=== PATIENT | male | born 1945 | race Caucasian/White ===

== ENCOUNTER → 2016-08-08 | Outpatient (CLI) | payer MEDICARE ==
[~2016-08-08] MED LIST: AMPI50CA PO; ASPI81TA85 PO; COLA100C PO; COUM1TAB14 PO; DIGO0.12 PO; DIOV160T2 PO; DOXA1TAB42 PO; LASI20TA PO; LEVO125T41 PO; MULTTAB6 PO; OMEG12002 PO; SIMV20TA2 PO; SPIR25TA2 PO; TOPR100T PO; VITA500046 PO; [UNRECOGNIZED DRUG - CODE] PO; [UNRECOGNIZED DRUG - OTHER]
[2016-08-08 12:06] LABS: MEAN CORPUSCULAR HEMOGLOBIN 30.9 pg (27.0-33.0); MEAN CORPUSCULAR HGB CONC 34.2 g/dl (32.0-36.5); MEAN CORPUSCULAR VOLUME 90.2 fl (80.0-96.0); WHITE BLOOD COUNT 7.1 K/mm3 (4.0-10.0)
[2016-08-08 12:29] LABS: ALBUMIN 3.9 GM/DL (3.2-5.2); ALBUMIN/GLOBULIN RATIO 1.05 (1.00-1.93); BILIRUBIN,TOTAL 0.4 MG/DL (0.2-1.0); CALCIUM LEVEL 9.2 MG/DL (8.8-10.2); CREATININE FOR GFR 1.64 MG/DL (0.70-1.30); GLOMERULAR FILTRATION RATE 44.4 (>42); MAGNESIUM LEVEL 2.4 MG/DL (1.8-2.4); POTASSIUM SERUM 5.1 MEQ/L (3.5-5.1); TOTAL PROTEIN 7.6 GM/DL (6.4-8.2)
== END ==
LOC: M SMT 08:56
PROVIDERS: ATTEND Internal Medicine
DX: E78.00 Pure hypercholesterolemia, unspecified (principal); E03.9 Hypothyroidism, unspecified; I12.9 Hypertensive chronic kidney disease with stage 1 through stage 4 chronic kidney disease, or unspecified chronic kidney disease; D63.1 Anemia in chronic kidney disease; N18.9 Chronic kidney disease, unspecified

== ENCOUNTER → 2016-11-28 | Outpatient (CLI) | payer MEDICARE ==
[~2016-11-28] MED LIST changes: -COLA100C PO; +COLA100C3 PO
--- NOTE | 2016-11-28 17:31 | REP ---
LEFT FOOT, FOUR VIEWS: HISTORY: Injury. There is no acute fracture or dislocation. There is narrowing of the 1st metatarsal phalangeal joint space and intermediate and distal interphalangeal joint spaces. IMPRESSION: There is no acute fracture or dislocation. Signed by Molina Ward MD 11/28/2016 05:41 P
--- NOTE | 2016-11-28 19:28 | REP ---
LEFT ANKLE, FOUR VIEWS: HISTORY: Injury. There is no fracture or dislocation. The joint space is normal in appearance. IMPRESSION: There is no acute fracture or dislocation. Signed by Molina Ward MD 11/28/2016 07:30 P
== END ==
LOC: M WUC 16:56
PROVIDERS: ATTEND Internal Medicine
DX: S99.922A Unspecified injury of left foot, initial encounter (principal); X58.XXXA Exposure to other specified factors, initial encounter; Y93.9 Activity, unspecified; Y92.9 Unspecified place or not applicable; Y99.8 Other external cause status

== ENCOUNTER → 2016-12-27 | Outpatient (CLI) | payer MEDICARE ==
[2016-12-27 13:49] LABS: ALBUMIN 3.5 GM/DL (3.2-5.2); ALBUMIN/GLOBULIN RATIO 1.06 (1.00-1.93); BILIRUBIN,TOTAL 0.5 MG/DL (0.2-1.0); CALCIUM LEVEL 8.4 MG/DL (8.8-10.2); CREATININE FOR GFR 1.81 MG/DL (0.70-1.30); GLOMERULAR FILTRATION RATE 39.7 (>42); POTASSIUM SERUM 4.7 MEQ/L (3.5-5.1); TOTAL PROTEIN 6.8 GM/DL (6.4-8.2); URIC ACID 7.8 MG/DL (3.5-7.2)
[2016-12-27 14:29] LABS: MEAN CORPUSCULAR HEMOGLOBIN 31.6 pg (27.0-33.0); MEAN CORPUSCULAR HGB CONC 33.5 g/dl (32.0-36.5); MEAN CORPUSCULAR VOLUME 94.5 fl (80.0-96.0); RED CELL DISTRIBUTION WIDTH 12.6 % (11.5-14.5); WHITE BLOOD COUNT 6.7 K/mm3 (4.0-10.0)
== END ==
LOC: M WUC 09:18
PROVIDERS: ATTEND Internal Medicine
DX: D64.9 Anemia, unspecified (principal); I10 Essential (primary) hypertension; M10.9 Gout, unspecified

== ENCOUNTER → 2017-01-31 | Outpatient (CLI) | payer MEDICARE ==
[~2017-01-31] MED LIST changes: +AMPI500C9 PO; -AMPI50CA PO; -COLA100C3 PO; +COLA100C5 PO
[2017-01-31 13:30] LABS: BASO % 0.3 % (0.0-1.0); EOS # 0.4 K/mm3 (0.0-0.50); LARGE UNSTAINED CELL # 0.1 K/mm3 (0.0-0.4); LARGE UNSTAINED CELL % 1.5 % (0.0-4.0); MEAN CORPUSCULAR HEMOGLOBIN 32.5 pg (27.0-33.0); MEAN CORPUSCULAR HGB CONC 34.5 g/dl (32.0-36.5); MEAN CORPUSCULAR VOLUME 94.2 fl (80.0-96.0); MONO # 0.5 K/mm3 (0.0-0.8); MONO % 7.1 % (0.0-5.0); NEUTROPHILS # 4.5 K/mm3 (1.8-7.7); NEUTROPHILS % 69.1 % (36.0-66.0); PLATELET COUNT, AUTOMATED 112 k/mm3 (150-450); RED CELL DISTRIBUTION WIDTH 12.9 % (11.5-14.5); WHITE BLOOD COUNT 6.5 K/mm3 (4.0-10.0)
== END ==
LOC: M WUC 09:07
PROVIDERS: ATTEND Internal Medicine
DX: D64.9 Anemia, unspecified (principal)

== ENCOUNTER → 2017-06-24 | Outpatient (CLI) | payer MEDICARE ==
[2017-06-24 15:34] LABS: MEAN CORPUSCULAR HGB CONC 33.2 g/dl (32.0-36.5); MEAN CORPUSCULAR VOLUME 96.4 fl (80.0-96.0); PLATELET COUNT, AUTOMATED 123 10^3/uL (150-450); RED CELL DISTRIBUTION WIDTH 13.8 % (11.5-14.5); WHITE BLOOD COUNT 8.4 10^3/uL (4.0-10.0)
[2017-06-24 15:36] LABS: ALBUMIN 3.7 GM/DL (3.2-5.2); ALBUMIN/GLOBULIN RATIO 1.09 (1.00-1.93); BILIRUBIN,TOTAL 0.7 MG/DL (0.2-1.0); CALCIUM LEVEL 8.9 MG/DL (8.8-10.2); CREATININE FOR GFR 1.64 MG/DL (0.70-1.30); GLOMERULAR FILTRATION RATE 44.3 (>42); MAGNESIUM LEVEL 2.1 MG/DL (1.8-2.4); POTASSIUM SERUM 4.5 MEQ/L (3.5-5.1); TOTAL PROTEIN 7.1 GM/DL (6.4-8.2); URIC ACID 3.7 MG/DL (3.5-7.2)
== END ==
LOC: M SMT 09:33
PROVIDERS: ATTEND Internal Medicine
DX: I12.9 Hypertensive chronic kidney disease with stage 1 through stage 4 chronic kidney disease, or unspecified chronic kidney disease (principal); E78.00 Pure hypercholesterolemia, unspecified; E03.9 Hypothyroidism, unspecified; M10.9 Gout, unspecified; D63.1 Anemia in chronic kidney disease; N18.9 Chronic kidney disease, unspecified

== ENCOUNTER → 2018-04-04 | Outpatient (CLI) | payer MEDICARE ==
[2018-04-04 13:18] LABS: HEMATOCRIT 30.1 % (42.0-52.0); HEMOGLOBIN 9.9 g/dl (13.5-17.5); MEAN CORPUSCULAR HEMOGLOBIN 32.1 pg (27.0-33.0); MEAN CORPUSCULAR HGB CONC 32.9 g/dl (32.0-36.5); MEAN CORPUSCULAR VOLUME 97.7 fl (80.0-96.0); PLATELET COUNT, AUTOMATED 127 10^3/uL (150-450); RED BLOOD COUNT 3.08 10^6/uL (4.30-6.10); RED CELL DISTRIBUTION WIDTH 13.4 % (11.5-14.5); WHITE BLOOD COUNT 8.6 10^3/uL (4.0-10.0)
[2018-04-04 14:06] LABS: PTH INTACT 23.3 PG/ML (18.5-88.0)
[2018-04-04 14:17] LABS: ALBUMIN 3.7 GM/DL (3.2-5.2); ALBUMIN/GLOBULIN RATIO 1.16 (1.00-1.93); ALKALINE PHOSPHATASE 73 U/L (45-117); ALT/SGPT 21 U/L (12-78); ANION GAP 9 MEQ/L (8-16); AST/SGOT 18 U/L (7-37); BILIRUBIN,TOTAL 0.9 MG/DL (0.2-1.0); BLOOD UREA NITROGEN 24 MG/DL (7-18); CALCIUM LEVEL 9.1 MG/DL (8.8-10.2); CARBON DIOXIDE LEVEL 27 MEQ/L (21-32); CHLORIDE LEVEL 107 MEQ/L (98-107); CHOLESTEROL LEVEL 74 MG/DL (<200); CHOLESTEROL RISK RATIO 2.387 (<5); CREATININE FOR GFR 1.65 MG/DL (0.70-1.30); GLUCOSE, FASTING 107 MG/DL (70-100); HDL CHOLESTEROL 31 MG/DL (>40); LDL CHOLESTEROL 29.8 MG/DL (<100); NON-HDL-C 43 MG/DL; POTASSIUM SERUM 4.3 MEQ/L (3.5-5.1); SODIUM LEVEL 143 MEQ/L (136-145); TOTAL PROTEIN 6.9 GM/DL (6.4-8.2); TRIGLYCERIDES LEVEL 66 MG/DL (<150)
== END ==
LOC: M SMT 08:08
DX: I12.9 Hypertensive chronic kidney disease with stage 1 through stage 4 chronic kidney disease, or unspecified chronic kidney disease (principal); E78.00 Pure hypercholesterolemia, unspecified; N18.3 Chronic kidney disease, stage 3 (moderate); D63.1 Anemia in chronic kidney disease; E03.9 Hypothyroidism, unspecified
CPT/HCPCS: 83735

== ENCOUNTER → 2018-08-15 | Outpatient (CLI) | payer MEDICARE ==
[~2018-08-15] MED LIST changes: -LASI20TA PO; +LASI20TA3 PO; +SPIR-10 PO; -SPIR25TA2 PO; -TOPR100T PO; +TOPR100T13 PO
[2018-08-15 12:22] LABS: HEMATOCRIT 30.9 % (42.0-52.0); MEAN CORPUSCULAR HEMOGLOBIN 30.8 pg (27.0-33.0); MEAN CORPUSCULAR HGB CONC 32.4 g/dl (32.0-36.5); MEAN CORPUSCULAR VOLUME 95.1 fl (80.0-96.0); PLATELET COUNT, AUTOMATED 145 10^3/uL (150-450); RED BLOOD COUNT 3.25 10^6/uL (4.30-6.10)
[2018-08-15 12:28] LABS: ALBUMIN 3.6 GM/DL (3.2-5.2); BILIRUBIN,TOTAL 0.7 MG/DL (0.2-1.0); CREATININE FOR GFR 1.62 MG/DL (0.70-1.30); GLOMERULAR FILTRATION RATE 44.8 (>42); MAGNESIUM LEVEL 2.2 MG/DL (1.8-2.4); POTASSIUM SERUM 4.9 MEQ/L (3.5-5.1); PTH INTACT 22.9 PG/ML (18.5-88.0); TOTAL PROTEIN 6.7 GM/DL (6.4-8.2)
== END ==
LOC: M SMT 09:20
PROVIDERS: ATTEND Internal Medicine
DX: N18.3 Chronic kidney disease, stage 3 (moderate) (principal); D63.1 Anemia in chronic kidney disease; I12.9 Hypertensive chronic kidney disease with stage 1 through stage 4 chronic kidney disease, or unspecified chronic kidney disease

== ENCOUNTER → 2018-10-27 | Outpatient (CLI) | payer MEDICARE ==
[~2018-10-27] MED LIST changes: -DIOV160T2 PO; +DIOV160T3 PO; +TOPR100T PO; -TOPR100T13 PO
[2018-10-27 18:03] LABS: HEMATOCRIT 33.6 % (42.0-52.0); HEMOGLOBIN 10.9 g/dl (13.5-17.5); MEAN CORPUSCULAR HEMOGLOBIN 30.6 pg (27.0-33.0); MEAN CORPUSCULAR HGB CONC 32.4 g/dl (32.0-36.5); MEAN CORPUSCULAR VOLUME 94.4 fl (80.0-96.0); PLATELET COUNT, AUTOMATED 147 10^3/uL (150-450); RED BLOOD COUNT 3.56 10^6/uL (4.30-6.10); WHITE BLOOD COUNT 7.8 10^3/uL (4.0-10.0)
[2018-10-27 18:12] LABS: ALBUMIN 3.7 GM/DL (3.2-5.2); CALCIUM LEVEL 8.5 MG/DL (8.8-10.2); CREATININE FOR GFR 1.52 MG/DL (0.70-1.30); GLOMERULAR FILTRATION RATE 48.2 (>42); MAGNESIUM LEVEL 2.2 MG/DL (1.8-2.4); PHOSPHORUS LEVEL 2.4 MG/DL (2.5-4.9); POTASSIUM SERUM 4.3 MEQ/L (3.5-5.1); PTH INTACT 25.2 PG/ML (18.5-88.0); THYROID STIMULATING HORMONE 1.69 uIU/ML (0.358-3.740); TOTAL PROTEIN 6.8 GM/DL (6.4-8.2); URIC ACID 8.8 MG/DL (3.5-7.2)
== END ==
LOC: M SMT 11:36
PROVIDERS: ATTEND Internal Medicine
DX: N18.3 Chronic kidney disease, stage 3 (moderate) (principal); D63.1 Anemia in chronic kidney disease; E03.9 Hypothyroidism, unspecified; M10.9 Gout, unspecified

== ENCOUNTER → 2019-03-04 | Outpatient (CLI) | payer MEDICARE ==
[~2019-03-04] MED LIST changes: +AMOX500C PO; +CARD1TAB4 PO; +COUM6TAB PO; +DIGO0.123 PO; +ENTR1TAB7 PO; +FOLI1TAB11 PO; +KP F1200 PO; +LASI40TA9 PO; +MULTCAP PO; -SIMV20TA2 PO; +SIMV20TA22 PO
[2019-03-04 10:24] LABS: HEMATOCRIT 33.1 % (42.0-52.0); HEMOGLOBIN 10.8 g/dl (13.5-17.5); MEAN CORPUSCULAR HEMOGLOBIN 30.5 pg (27.0-33.0); MEAN CORPUSCULAR HGB CONC 32.6 g/dl (32.0-36.5); MEAN CORPUSCULAR VOLUME 93.5 fl (80.0-96.0); PLATELET COUNT, AUTOMATED 106 10^3/uL (150-450); RED BLOOD COUNT 3.54 10^6/uL (4.30-6.10); WHITE BLOOD COUNT 5.8 10^3/uL (4.0-10.0)
[2019-03-04 10:49] LABS: ALBUMIN 3.6 GM/DL (3.2-5.2); BILIRUBIN,TOTAL 1.3 MG/DL (0.2-1.0); CALCIUM LEVEL 9.3 MG/DL (8.8-10.2); CHOLESTEROL RISK RATIO 1.886 (<5); CREATININE FOR GFR 1.47 MG/DL (0.70-1.30); GLOMERULAR FILTRATION RATE 50.1 (>42); MAGNESIUM LEVEL 2.3 MG/DL (1.8-2.4); PHOSPHORUS LEVEL 2.7 MG/DL (2.5-4.9); POTASSIUM SERUM 4.8 MEQ/L (3.5-5.1); TOTAL PROTEIN 6.9 GM/DL (6.4-8.2); URIC ACID 9.1 MG/DL (3.5-7.2)
[2019-03-04 11:02] LABS: PTH INTACT 37.6 PG/ML (18.5-88.0)
== END ==
LOC: M SMT 08:43
PROVIDERS: ATTEND Internal Medicine
DX: I12.9 Hypertensive chronic kidney disease with stage 1 through stage 4 chronic kidney disease, or unspecified chronic kidney disease (principal); E78.00 Pure hypercholesterolemia, unspecified; N18.3 Chronic kidney disease, stage 3 (moderate); M10.9 Gout, unspecified; D63.1 Anemia in chronic kidney disease

== ENCOUNTER → 2019-05-21 | Outpatient (CLI) | payer MEDICARE ==
[~2019-05-21] MED LIST changes: -DIGO0.123 PO; +SIMV20TA2 PO; -SIMV20TA22 PO
[2019-05-21 13:05] LABS: BASO # 0.1 10^3/uL (0.0-0.2); EOS # 0.3 10^3/uL (0.0-0.5); EOS % 4.9 % (0.0-3.0); HEMATOCRIT 32.5 % (42.0-52.0); HEMOGLOBIN 10.4 g/dl (13.5-17.5); LYMPH % 14.3 % (24.0-44.0); MEAN CORPUSCULAR HEMOGLOBIN 30.2 pg (27.0-33.0); MEAN CORPUSCULAR VOLUME 94.5 fl (80.0-96.0); MONO # 0.7 10^3/uL (0.0-0.8); MONO % 9.6 % (0.0-5.0); NEUTROPHILS # 4.9 10^3/uL (1.5-8.5); NEUTROPHILS % 69.9 % (36.0-66.0); PLATELET COUNT, AUTOMATED 174 10^3/uL (150-450); RED BLOOD COUNT 3.44 10^6/uL (4.30-6.10)
[2019-05-21 13:45] LABS: ERYTHROCYTE SEDIMENTATION RATE 65 mm/hr (0-20)
== END ==
LOC: M SMT 08:52
PROVIDERS: ATTEND Internal Medicine Infectious Disease
DX: R78.81 Bacteremia (principal)

== ENCOUNTER → 2019-05-21 | Outpatient (CLI) | payer MEDICARE ==
[2019-05-21 13:09] LABS: BASO # 0.1 10^3/uL (0.0-0.2); EOS # 0.3 10^3/uL (0.0-0.5); EOS % 4.9 % (0.0-3.0); HEMATOCRIT 32.4 % (42.0-52.0); HEMOGLOBIN 10.4 g/dl (13.5-17.5); LYMPH % 14.4 % (24.0-44.0); MEAN CORPUSCULAR HEMOGLOBIN 30.4 pg (27.0-33.0); MEAN CORPUSCULAR HGB CONC 32.1 g/dl (32.0-36.5); MEAN CORPUSCULAR VOLUME 94.7 fl (80.0-96.0); MONO # 0.7 10^3/uL (0.0-0.8); MONO % 10.6 % (0.0-5.0); NEUTROPHILS # 4.7 10^3/uL (1.5-8.5); NEUTROPHILS % 68.8 % (36.0-66.0); PLATELET COUNT, AUTOMATED 177 10^3/uL (150-450); RED BLOOD COUNT 3.42 10^6/uL (4.30-6.10); WHITE BLOOD COUNT 6.9 10^3/uL (4.0-10.0)
[2019-05-21 14:11] LABS: CALCIUM LEVEL 9.5 MG/DL (8.8-10.2); CREATININE FOR GFR 1.34 MG/DL (0.70-1.30); GLOMERULAR FILTRATION RATE 55.6 (>42); POTASSIUM SERUM 4.9 MEQ/L (3.5-5.1)
== END ==
LOC: M SMT 08:55
PROVIDERS: ATTEND Internal Medicine Cardiovascular Disease
DX: I42.0 Dilated cardiomyopathy (principal)
CPT/HCPCS: 36415; 80048; 83880; 85025; 85652; 86140; G0463

== ENCOUNTER → 2019-05-25 | Outpatient (REF) | payer MEDICARE ==
[2019-05-25 13:31] LABS: BASO % 0.6 % (0.0-1.0); EOS # 0.4 10^3/uL (0.0-0.5); EOS % 5.9 % (0.0-3.0); HEMATOCRIT 29.2 % (42.0-52.0); HEMOGLOBIN 9.5 g/dl (13.5-17.5); LYMPH # 1.2 10^3/uL (1.5-5.0); LYMPH % 17.3 % (24.0-44.0); MEAN CORPUSCULAR HGB CONC 32.5 g/dl (32.0-36.5); MEAN CORPUSCULAR VOLUME 92.1 fl (80.0-96.0); MONO # 0.8 10^3/uL (0.0-0.8); MONO % 11.3 % (0.0-5.0); NEUTROPHILS # 4.3 10^3/uL (1.5-8.5); NEUTROPHILS % 64.7 % (36.0-66.0); PLATELET COUNT, AUTOMATED 157 10^3/uL (150-450); RED BLOOD COUNT 3.17 10^6/uL (4.30-6.10); WHITE BLOOD COUNT 6.7 10^3/uL (4.0-10.0)
[2019-05-25 14:05] LABS: ALT/SGPT 37 U/L (12-78); BILIRUBIN,TOTAL 0.6 MG/DL (0.2-1.0); BLOOD UREA NITROGEN 28 MG/DL (7-18); C REACTIVE PROTEIN QUANTITATIV < 0.30 MG/DL (0.00-0.30); CALCIUM LEVEL 8.7 MG/DL (8.8-10.2); CARBON DIOXIDE LEVEL 29 MEQ/L (21-32); CHLORIDE LEVEL 99 MEQ/L (98-107); CREATININE FOR GFR 1.28 MG/DL (0.70-1.30); GLOMERULAR FILTRATION RATE 58.6 (>42); GLUCOSE, FASTING 114 MG/DL (70-100); POTASSIUM SERUM 4.5 MEQ/L (3.5-5.1); SODIUM LEVEL 135 MEQ/L (136-145); TOTAL PROTEIN 7.1 GM/DL (6.4-8.2)
[2019-05-25 14:15] LABS: ERYTHROCYTE SEDIMENTATION RATE 56 mm/hr (0-20)
== END ==
LOC: M SHH 12:57
PROVIDERS: ATTEND Internal Medicine Infectious Disease
DX: R78.81 Bacteremia (principal); Z95.2 Presence of prosthetic heart valve

== ENCOUNTER → 2019-06-02 | Outpatient (REF) | payer MEDICARE ==
[2019-06-02 16:22] LABS: BASO % 0.5 % (0.0-1.0); EOS # 0.5 10^3/uL (0.0-0.5); HEMATOCRIT 28.6 % (42.0-52.0); HEMOGLOBIN 9.1 g/dl (13.5-17.5); LYMPH % 16.9 % (24.0-44.0); MEAN CORPUSCULAR HEMOGLOBIN 29.4 pg (27.0-33.0); MEAN CORPUSCULAR HGB CONC 31.8 g/dl (32.0-36.5); MEAN CORPUSCULAR VOLUME 92.6 fl (80.0-96.0); MONO # 0.6 10^3/uL (0.0-0.8); MONO % 11.1 % (0.0-5.0); NEUTROPHILS # 3.6 10^3/uL (1.5-8.5); NEUTROPHILS % 63.2 % (36.0-66.0); PLATELET COUNT, AUTOMATED 139 10^3/uL (150-450); RED BLOOD COUNT 3.09 10^6/uL (4.30-6.10); WHITE BLOOD COUNT 5.8 10^3/uL (4.0-10.0)
[2019-06-02 16:43] LABS: ALBUMIN 3.3 GM/DL (3.2-5.2); ALT/SGPT 42 U/L (12-78); BILIRUBIN,TOTAL 0.5 MG/DL (0.2-1.0); BLOOD UREA NITROGEN 35 MG/DL (7-18); C REACTIVE PROTEIN QUANTITATIV < 0.30 MG/DL (0.00-0.30); CALCIUM LEVEL 8.6 MG/DL (8.8-10.2); CARBON DIOXIDE LEVEL 29 MEQ/L (21-32); CHLORIDE LEVEL 102 MEQ/L (98-107); CREATININE FOR GFR 1.33 MG/DL (0.70-1.30); GLOMERULAR FILTRATION RATE 56.1 (>42); GLUCOSE, FASTING 111 MG/DL (70-100); POTASSIUM SERUM 4.3 MEQ/L (3.5-5.1); SODIUM LEVEL 136 MEQ/L (136-145); TOTAL PROTEIN 6.9 GM/DL (6.4-8.2)
[2019-06-02 18:12] LABS: ERYTHROCYTE SEDIMENTATION RATE 61 mm/hr (0-20)
[2019-06-03 16:54] LABS: FERRITIN 174 NG/ML (26-388); IRON (FE) 115 UG/DL (65-175); PERCENT SATURATION 37.7 % (19.7-50.0); TOTAL IRON BINDING CAPACITY 305 UG/DL (250-450)
== END ==
LOC: M SFHCPLAZ 15:13 → M SHH 15:13
PROVIDERS: ATTEND Internal Medicine Infectious Disease
DX: R78.81 Bacteremia (principal); Z95.2 Presence of prosthetic heart valve; D64.9 Anemia, unspecified

== ENCOUNTER → 2019-06-09 | Outpatient (REF) | payer MEDICARE ==
[2019-06-09 15:40] LABS: BASO % 0.5 % (0.0-1.0); EOS # 0.5 10^3/uL (0.0-0.5); EOS % 6.7 % (0.0-3.0); HEMOGLOBIN 10.4 g/dl (13.5-17.5); LYMPH # 1.6 10^3/uL (1.5-5.0); LYMPH % 21.6 % (24.0-44.0); MEAN CORPUSCULAR HEMOGLOBIN 29.9 pg (27.0-33.0); MEAN CORPUSCULAR HGB CONC 32.5 g/dl (32.0-36.5); MONO # 0.6 10^3/uL (0.0-0.8); MONO % 8.4 % (0.0-5.0); NEUTROPHILS # 4.6 10^3/uL (1.5-8.5); NEUTROPHILS % 62.5 % (36.0-66.0); PLATELET COUNT, AUTOMATED 164 10^3/uL (150-450); RED BLOOD COUNT 3.48 10^6/uL (4.30-6.10); WHITE BLOOD COUNT 7.4 10^3/uL (4.0-10.0)
[2019-06-09 16:00] LABS: ERYTHROCYTE SEDIMENTATION RATE 58 mm/hr (0-20)
== END ==
LOC: M SFHCPLAZ 14:32
PROVIDERS: ATTEND Internal Medicine Infectious Disease
DX: R78.81 Bacteremia (principal)

== ENCOUNTER → 2019-06-15 | Outpatient (REF) | payer MEDICARE ==
[~2019-06-15] MED LIST changes: +DIGO0.123 PO; -SIMV20TA2 PO; +SIMV20TA22 PO
[2019-06-15 11:20] LABS: BASO % 0.7 % (0.0-1.0); EOS # 0.5 10^3/uL (0.0-0.5); EOS % 8.1 % (0.0-3.0); HEMATOCRIT 30.8 % (42.0-52.0); LYMPH # 1.3 10^3/uL (1.5-5.0); LYMPH % 21.1 % (24.0-44.0); MEAN CORPUSCULAR HEMOGLOBIN 30.1 pg (27.0-33.0); MEAN CORPUSCULAR HGB CONC 32.5 g/dl (32.0-36.5); MEAN CORPUSCULAR VOLUME 92.8 fl (80.0-96.0); MONO # 0.6 10^3/uL (0.0-0.8); MONO % 9.6 % (0.0-5.0); NEUTROPHILS # 3.6 10^3/uL (1.5-8.5); NEUTROPHILS % 60.3 % (36.0-66.0); PLATELET COUNT, AUTOMATED 138 10^3/uL (150-450); RED BLOOD COUNT 3.32 10^6/uL (4.30-6.10)
[2019-06-15 11:59] LABS: ERYTHROCYTE SEDIMENTATION RATE 44 mm/hr (0-20)
== END ==
LOC: M SFHCPLAZ 09:50
PROVIDERS: ATTEND Internal Medicine Infectious Disease
DX: R78.81 Bacteremia (principal)
CPT/HCPCS: 36415; 85025; 85652; 86140; 87040; G0463

== ENCOUNTER → 2019-07-31 | Outpatient (CLI) | payer MEDICARE ==
[2019-07-31 13:59] LABS: HEMATOCRIT 29.7 % (42.0-52.0); HEMOGLOBIN 9.6 g/dl (13.5-17.5); MEAN CORPUSCULAR HEMOGLOBIN 30.6 pg (27.0-33.0); MEAN CORPUSCULAR HGB CONC 32.3 g/dl (32.0-36.5); MEAN CORPUSCULAR VOLUME 94.6 fl (80.0-96.0); PLATELET COUNT, AUTOMATED 124 10^3/uL (150-450); RED BLOOD COUNT 3.14 10^6/uL (4.30-6.10); WHITE BLOOD COUNT 7.1 10^3/uL (4.0-10.0)
[2019-07-31 14:14] LABS: ALBUMIN 3.7 GM/DL (3.2-5.2); BILIRUBIN,TOTAL 0.6 MG/DL (0.2-1.0); CALCIUM LEVEL 8.6 MG/DL (8.8-10.2); CREATININE FOR GFR 1.68 MG/DL (0.70-1.30); GLOMERULAR FILTRATION RATE 42.9 (>42); MAGNESIUM LEVEL 2.3 MG/DL (1.8-2.4); POTASSIUM SERUM 4.6 MEQ/L (3.5-5.1); THYROID STIMULATING HORMONE 2.4 uIU/ML (0.358-3.740); TOTAL PROTEIN 7.2 GM/DL (6.4-8.2); URIC ACID 9.6 MG/DL (3.5-7.2)
[2019-07-31 14:15] LABS: PTH INTACT 49.5 PG/ML (18.5-88.0)
== END ==
LOC: M PLALAB 09:42
PROVIDERS: ATTEND Internal Medicine
DX: N18.3 Chronic kidney disease, stage 3 (moderate) (principal); D63.1 Anemia in chronic kidney disease; I12.9 Hypertensive chronic kidney disease with stage 1 through stage 4 chronic kidney disease, or unspecified chronic kidney disease; E03.9 Hypothyroidism, unspecified; M10.9 Gout, unspecified

== ENCOUNTER → 2019-12-01 | Outpatient (REF) | payer MEDICARE ==
[2019-12-01 11:04] LABS: HEMATOCRIT 29.5 % (42.0-52.0); HEMOGLOBIN 9.9 g/dl (13.5-17.5); MEAN CORPUSCULAR HEMOGLOBIN 32.2 pg (27.0-33.0); MEAN CORPUSCULAR HGB CONC 33.6 g/dl (32.0-36.5); MEAN CORPUSCULAR VOLUME 96.1 fl (80.0-96.0); PLATELET COUNT, AUTOMATED 150 10^3/uL (150-450); RED BLOOD COUNT 3.07 10^6/uL (4.30-6.10)
[2019-12-01 11:12] LABS: ALBUMIN 3.9 GM/DL (3.2-5.2); BILIRUBIN,TOTAL 0.7 MG/DL (0.2-1.0); CALCIUM LEVEL 8.9 MG/DL (8.8-10.2); CHOLESTEROL RISK RATIO 2.6 (<5); CREATININE FOR GFR 1.95 MG/DL (0.70-1.30); GLOMERULAR FILTRATION RATE 36.1 (>42); TOTAL PROTEIN 7.5 GM/DL (6.4-8.2); URIC ACID 10.5 MG/DL (3.5-7.2)
[2019-12-01 11:18] LABS: PTH INTACT 55.6 PG/ML (18.5-88.0)
== END ==
LOC: M PLALAB 08:19
PROVIDERS: ATTEND Internal Medicine
DX: I12.9 Hypertensive chronic kidney disease with stage 1 through stage 4 chronic kidney disease, or unspecified chronic kidney disease (principal); D63.1 Anemia in chronic kidney disease; E78.00 Pure hypercholesterolemia, unspecified; I42.0 Dilated cardiomyopathy; N18.3 Chronic kidney disease, stage 3 (moderate); M10.9 Gout, unspecified
CPT/HCPCS: 36415; 80053; 80061; 83970; 84550; 85027; G0103

== ENCOUNTER → 2020-03-26 | Outpatient (CLI) | payer MEDICARE, BC ==
[~2020-03-26] MED LIST changes: -ASPI81TA85 PO; +ASPI81TA86 PO; -COUM1TAB14 PO; +COUM4TAB8 PO; -COUM6TAB PO; +COUM6TAB10 PO; +DOXA1TAB42; +IMPRIMIS EYE DROPS OU; +VITA200010 PO; +WARF-20 PO; +WARF4TAB51 PO
== END ==
LOC: M LABSMTC 09:12
PROVIDERS: ATTEND Anesthesiology
DX: Z01.812 Encounter for preprocedural laboratory examination (principal); Z20.828 Contact with and (suspected) exposure to other viral communicable diseases
CPT/HCPCS: C9803; U0003

== ENCOUNTER 2020-03-31 10:30 | Day surgery (SDC) | payer MEDICARE, BC ==
[~2020-03-31] VITALS: Ht 182.9 cm; Wt 88.0 kg
[~2020-03-31 10:30] MED LIST changes: -DOXA1TAB42; -IMPRIMIS EYE DROPS OU; +NS 1,000 ML IV ONE; -VITA200010 PO; -WARF-20 PO; -WARF4TAB51 PO
[2020-03-31] MEDS ORDERED: propofoL 200 MG/20 ML VIAL As Ordered ONE (11:48)
[2020-03-31] MEDS ORDERED: LIDOCAINE 2% 100MG/5ML SDV (FOR ANES.) As Ordered ONE (11:49)
[2020-03-31 12:28] VITALS: BP 99/57
[2020-04-01] MEDS ORDERED: DOXA1TAB42 (08:41)
[2020-04-01] MEDS ORDERED: WARF4TAB51 PO (11:16)
[2020-04-01] MEDS ORDERED: SPIR-10 PO (11:16)
[2020-04-01] MEDS ORDERED: WARF-20 PO (11:16)
[2020-04-01] MEDS ORDERED: VITA200010 PO (11:21)
[2020-04-01] MEDS ORDERED: IMPRIMIS EYE DROPS OU (12:11)
--- NOTE | 2020-04-06 11:37 | ROOR ---
Patient Name: Luis Pickett Procedure Date: 03/31/2020 9:21 AM Date of : 1945 Age: 74 Room: [facility] Gender: Male Note Status: Finalized Procedure: Colonoscopy Indications: High risk colon cancer surveillance: Personal history of colonic polyps Providers: Mirza RAMIREZ MD Referring MD: Homer Garcia MD Requesting Provider: Medicines: Monitored Anesthesia Care Complications: No immediate complications. Procedure: Pre-Anesthesia Assessment: - The heart rate, respiratory rate, oxygen saturations, blood pressure, adequacy of pulmonary ventilation, and response to care were monitored throughout the procedure. The Colonoscope was introduced through the anus and advanced to the terminal ileum, with identification of the appendiceal orifice and IC valve. The colonoscopy was performed without difficulty. The patient tolerated the procedure well. The quality of the bowel preparation was good. Findings: The perianal and digital rectal examinations were normal. Two semi-pedunculated polyps were found in the splenic flexure and ascending colon. The polyps were 5 to 8 mm in size. These polyps were removed with a cold snare. Resection and retrieval were complete. To prevent bleeding after the polypectomy, two hemostatic clips were successfully placed (ascending colon). Multiple medium-mouthed diverticula were found in the sigmoid colon. Internal hemorrhoids were found during retroflexion. The hemorrhoids were moderate. The exam was otherwise normal throughout the examined colon. Impression: - Two 5 to 8 mm polyps at the splenic flexure and in the ascending colon, removed with a cold snare. Resected and retrieved. Clips were placed. - Diverticulosis in the sigmoid colon. - Internal hemorrhoids. Recommendation: - Repeat colonoscopy in 5 years for surveillance. Mirza Ramirez MD Mirza RAMIREZ MD 03/31/2020 12:03:51 PM Electronically signed by Mirza RAMIREZ MD Number of Addenda: 0 Note Initiated On: 03/31/2020 9:21 AM Estimated Blood Loss: Estimated blood loss: none.
--- NOTE | 2020-06-01 09:06 | ROOR ---
Patient Name: Luis Pickett Procedure Date: 04/02/2020 9:54 AM Date of : 1945 Age: 74 Gender: Male Note Status: Finalized Procedure: Colonoscopy Indications: Hematochezia, Treatment of bleeding from polypectomy site Providers: Mirza RAMIREZ MD Referring MD: 2. Inpatient 2. Inpatient Requesting Provider: Medicines: Monitored Anesthesia Care Complications: No immediate complications. Procedure: Pre-Anesthesia Assessment: - The heart rate, respiratory rate, oxygen saturations, blood pressure, adequacy of pulmonary ventilation, and response to care were monitored throughout the procedure. The Colonoscope was introduced through the anus and advanced to the cecum, identified by appendiceal orifice and ileocecal valve. The colonoscopy was somewhat difficult due to excessive bleeding. Successful completion of the procedure was aided by lavage. The patient tolerated the procedure well. The quality of the bowel preparation was adequate. Findings: The perianal and digital rectal examinations were normal. A clot and oozing blood was seen in the proximal ascending colon, secondary to previous polypectomy procedure. For hemostasis, seven hemostatic clips were successfully placed (MR conditional). There was no bleeding at the end of the procedure. Stigmata of possible recent bleeding was seen at the splenic flexure, secondary to previous polypectomy procedure. For hemostasis, three hemostatic clips were successfully placed (MR conditional). There was no bleeding at the end of the procedure. Impression: - Active bleeding in the proximal ascending colon secondary to previous polypectomy. Clips (MR conditional) were placed with good hemostasis. - Possible bleeding at the splenic flexure secondary to previous polypectomy. Clips (MR conditional) were placed. - No specimens collected. Recommendation: - Advance diet as tolerated. - The patient will be observed post-procedure, until all discharge criteria are met. - Observe today til 3-5 pm, then possible discharge today if no rebleeding. He is anemic and may need blood transfusion.--await follow up H&H. [facility] to [facility] for possible discharge same day. Mirza Ramirez MD Mirza RAMIREZ MD 04/02/2020 10:06:01 AM Electronically signed by Mirza RAMIREZ MD Number of Addenda: 0 Note Initiated On: 04/02/2020 9:54 AM Estimated Blood Loss: Estimated blood loss: none.
--- NOTE | 2020-06-01 09:06 | ROOR ---
Patient Name: Luis Pickett Procedure Date: 04/02/2020 9:50 AM Date of : 1945 Age: 74 Gender: Male Note Status: Finalized Procedure: Upper GI endoscopy Indications: Acute post hemorrhagic anemia, Anemia Providers: Mirza RAMIREZ MD Referring MD: 2. Inpatient 2. Inpatient Requesting Provider: Medicines: Monitored Anesthesia Care Complications: No immediate complications. Procedure: Pre-Anesthesia Assessment: - The heart rate, respiratory rate, oxygen saturations, blood pressure, adequacy of pulmonary ventilation, and response to care were monitored throughout the procedure. The Endoscope was introduced through the mouth, and advanced to the third part of duodenum. The upper GI endoscopy was accomplished without difficulty. The patient tolerated the procedure well. Findings: The esophagus was normal. The stomach was normal. The examined duodenum was normal. Impression: - Normal esophagus. - Normal stomach. - Normal examined duodenum. - No specimens collected. Recommendation: - The patient will be observed post-procedure, until all discharge criteria are met. - Return patient to [facility] for possible discharge same day. Mirza Ramirez MD Mirza RAMIREZ MD 04/02/2020 10:06:50 AM Electronically signed by Mirza RAMIREZ MD Number of Addenda: 0 Note Initiated On: 04/02/2020 9:50 AM Estimated Blood Loss: Estimated blood loss: none.
== END 2020-03-31 12:32 | disposition home or self-care (01) ==
LOC: M OPP 10:30
PROVIDERS: ATTEND Internal Medicine Gastroenterology
DX: Z12.11 Encounter for screening for malignant neoplasm of colon (principal); Z86.010 Personal history of colon polyps; K63.5 Polyp of colon; K64.8 Other hemorrhoids; K57.30 Diverticulosis of large intestine without perforation or abscess without bleeding; I48.91 Unspecified atrial fibrillation; I42.9 Cardiomyopathy, unspecified; G47.30 Sleep apnea, unspecified; Z79.82 Long term (current) use of aspirin; Z79.899 Other long term (current) drug therapy; Z88.5 Allergy status to narcotic agent; Z80.0 Family history of malignant neoplasm of digestive organs; Z95.0 Presence of cardiac pacemaker

== ENCOUNTER 2020-04-01 08:33 | Observation (INO) | payer MEDICARE ==
[~2020-04-01] VITALS: Ht 182.9 cm; Wt 90.1 kg
[~2020-04-01 08:33] MED LIST changes: -NS 1,000 ML IV ONE
[2020-04-01] MEDS ORDERED: DOXA1TAB42 (08:41)
[2020-04-01 09:32] LABS: BASO % 0.4 % (0.0-1.0); EOS # 0.3 10^3/uL (0.0-0.5); EOS % 3.8 % (0.0-3.0); HEMATOCRIT 28.2 % (42.0-52.0); HEMOGLOBIN 9.6 g/dl (13.5-17.5); LYMPH # 1.1 10^3/uL (1.5-5.0); LYMPH % 15.5 % (24.0-44.0); MEAN CORPUSCULAR HEMOGLOBIN 31.7 pg (27.0-33.0); MEAN CORPUSCULAR VOLUME 93.1 fl (80.0-96.0); MONO # 0.6 10^3/uL (0.0-0.8); MONO % 8.8 % (0.0-5.0); NEUTROPHILS % 71.2 % (36.0-66.0); PLATELET COUNT, AUTOMATED 146 10^3/uL (150-450); RED BLOOD COUNT 3.03 10^6/uL (4.30-6.10); WHITE BLOOD COUNT 7.1 10^3/uL (4.0-10.0)
[2020-04-01 09:43] LABS: INR 2.4; PROTHROMBIN TIME 26.7 SECONDS (11.8-14.0)
[2020-04-01 09:44] LABS: PARTIAL THROMBOPLASTIN TIME 36.5 SECONDS (25.0-38.4)
[2020-04-01] MEDS ORDERED: SODIUM CHLORIDE 0.9% 1000ML IV SCH (11:15)
[2020-04-01] MEDS ORDERED: ACETAMINOPHEN TAB 650MG DOSE (2X325MG) PO PRN (11:15)
[2020-04-01] MEDS ORDERED: WARF4TAB51 PO (11:16)
[2020-04-01] MEDS ORDERED: SPIR-10 PO (11:16)
[2020-04-01] MEDS ORDERED: WARF-20 PO (11:16)
[2020-04-01] MEDS ORDERED: VITA200010 PO (11:21)
[2020-04-01] MEDS ORDERED: IMPRIMIS EYE DROPS OU (12:11)
[2020-04-01 12:20] VITALS: BP 117/63
--- NOTE | 2020-04-01 12:33 | HPEPDOC ---
[facility] Medical History & Physical Date of Admission Apr 01, 2020 Date of Service: Apr 01, 2020 Primary Care Physician: Homer Garcia Attending Physician: ANDREW BOOTH MD History and Physical CHIEF COMPLAINT: Coffee ground stool HISTORY OF PRESENT ILLNESS: Patient is a 74 y/o Male presenting with multiple coffee ground stools since his screening colonoscopy yesterday with Dr. Ramirez. He was feeling fine after the procedure when sometime in the early evening he began having loose stools with coffee grounds happening multiple times per hour and continuing overnight. He called Dr. Ramirez this AM who recommended he to go to [facility] ED for and repeat colonoscopy to help stop the bleed given patient's history of an unspecified coagulopathy and hx of stroke in the past when [facility] was held, Dr. Ramirez would repeat the colonoscopy to help stop the bleed. Per the ED PA, he also recommended Q6H H/H. The patient denies any symptoms at this time and ED work up was unremarkable except for occult blood in his stool. He denied any dizziness, lightheadedness, weakness, fatigue, chest pain, or difficulty breathing. PAST MEDICAL HISTORY: #. Paroxysmal Afib #. Aortic valve replacement with (bioprosthetic valve) #. Hx of strep Mitis treated with IV rocephin following JASEN #. Hx of CVA #. Dilated cardiomyopathy (EF 24% 04/2019) #. CKD stage III #. HTN #. Hypothyroidism #. Impaired fasting glucose #. Hx of tubulovillous polyps #. Hypercholesterolemia #. Central sleep apnea (CPAP +8cm H2O per outpatient record) #. Gout #. Anemia of chronic disease PAST SURGICAL HISTORY: #. Aortic valve replacement (1994, then again in 2008 (bioprosthetic) #. AICD and biventricular pacemaker (replacement most recently 2015) #. Pterygium surgery #. Bilateral SOCIAL HISTORY: . Former smoker (>10 years), 1-2 EtOH beverages/day, no illicit drug use. On disability but prior history of work for [employer]. FAMILY HISTORY: Father from [place] at 74 Mother from CHF and T2DM at 74 niece with hx of coagulopathy Sister with HTN ALLERGIES: Please see below. REVIEW OF SYSTEMS: Constitutional: Denies weight loss, change in appetite, or recent trauma Eyes: No visual changes or eye pain Ears, Nose, Throat: Denies nose bleeds, or difficulty swallowing Cardiovascular: Denies chest pain, sweating, or orthopnea Respiratory: Denies cough, wheezing, or shortness of breath GI: Omar nausea, vomiting, abdominal pain, diarrhea or constipation. Admits to coffee ground stools. : Denies pain with urination or frequency Musculoskeletal: Denies joint pain or swelling Neuro / Psych: Denies muscle weakness or sensory loss Skin: No skin rashes noted HOME MEDICATIONS: Please see below. PHYSICAL EXAMINATION: VITAL SIGNS: See below. GENERAL APPEARANCE: Well appearing male laying comfortably in bed in NAD. HEENT: NC, AT, EOMI, mucous membranes moist, no scleral icterus. No pharyngeal erythema or edema. CARDIOVASCULAR: Irregular rate and rhythm. Pansystolic murmur. No gallops or rubs. LUNGS: CTAB with full breath sounds. No wheezes, crackles, or rhonchi ABDOMEN: Soft, non-tender, non-distended. No masses or eccyhmosis EXTREMITIES: No swelling or LE edema NEUROLOGICAL: No focal motor or sensory deficits. PSYCHIATRIC: Normal mood and affect. LABORATORY DATA: See below. IMAGING: None MICROBIOLOGY: Please see below. ASSESSMENT/PLAN: #. Lower GI Bleed -Will trend patient's H/H Q12H and transfuse if necessary. -IV protonix BID -Giving small fluid bolus for volume loss, patient is hemodynamically stable. -Patient with bioprosthetic valve, on warfarin for Afib only, hx of stroke in the past on holding coumadin. INR 2.4, Dr. Ramirez would like us to continue patient on current dosing without reversal. Transfuse with PRBCs and give 1 unit of FFP with Vitamin K in the event the Hgb drops more than 2 units in an 8 hour time period or patient becomes hemodynamically unstable. Risks and benefits of holding AC were discussed with and she verbalized understanding and agreement. Dr. Booth spoke with Dr. Ramirez who thinks he knows where the b jake are coming from and thinks he will be able to clip the lesions and prevent further blood loss without INR reversal. -NPO for colonoscopy tomorrow as per Dr. Ramirez's orders. #. Acute on chronic kidney injury -Likely pre-renal from volume loss, 1 liter fluid bolus given, will recheck in AM. -Baseline Cr 1.33 #. Paroxysmal Afib -Continue Warfarin as per above, hold Aspirin -Continue Metoprolol #. Hx of CVA -Continue Statin, hold aspirin. #. Dilated cardiomyopathy (EF 24% 04/2019) -Continue Entresto, spironolactone, Digoxin. Hold lasix. #. BPH -Continue Doxazosin #. HTN -Continue spironolactone, metoprolol. #. Hypothyroidism -Continue Synthroid DVT prophylaxis: On coumadin GI prophylaxis: pantoprazole CODE status: Full code. Vital Signs Vital Signs Date Time Temp Pulse Resp B/P (MAP) Pulse Ox O2 Delivery O2 Flow Rate FiO2 04/01/20 12:00 97.8 74 18 112/71 (85) 100 Room Air Laboratory Data Labs 24H Laboratory Tests 2 04/01/20 09:18: Immature Granulocyte % (Auto) 0.3, Neutrophils (%) (Auto) 71.2H, Lymphocytes (%) (Auto) 15.5L, Monocytes (%) (Auto) 8.8H, Eosinophils (%) (Auto) 3.8H, Basophils (%) (Auto) 0.4, Neutrophils # (Auto) 5.0, Lymphocytes # (Auto) 1.1L, Monocytes # (Auto) 0.6, Eosinophils # (Auto) 0.3, Basophils # (Auto) 0.0, Nucleated Red Blood Cells % (auto) 0.0, Prothrombin Time 26.7H, Prothromb Time International Ratio 2.40, Activated Partial Thromboplast Time 36.5 CBC/BMP Laboratory Tests 04/01/20 09:18 Home Medications Scheduled Aspirin (Aspir 81) 81 Mg Tab, 81 MG PO QHS Cholecalciferol (Vitamin D3) (Vitamin D3) 50 Mcg Tablet, 2,000 UNITS PO DAILY Digoxin (Digoxin) 125 Mcg Tablet, 62.5 MCG PO QAM Doxazosin Mesylate (Cardura) 1 Mg Tablet, 1 MG PO QHS Fish Oil/Dha/Epa (Fish Oil 1,200 mg Fish Oil) 1 Each Capsule, 1 CAP PO DAILY Folic Acid (Folic Acid) 1 Mg Tablet, 1 MG PO QHS Furosemide (Lasix) 40 Mg Tablet, 40 MG PO QAM Levothyroxine Sodium (Levoxyl) 125 Mcg Tab, 125 MCG PO QHS Metoprolol Succinate (Toprol Xl) 100 Mg Tab, 100 MG PO BID Multivitamin (Multivitamins) 1 Each Capsule, 1 CAP PO DAILY Sacubitril/Valsartan (Entresto 49 mg-51 mg Tablet) 1 Each Tablet, 1 TAB PO BID Simvastatin (Simvastatin) 20 Mg Tab, 20 MG PO QHS Spironolactone (Spironolactone) 25 Mg Tablet, 12.5 MG PO DAILY Warfarin Sodium (Warfarin Sodium) 2 Mg Tablet, 8 MG PO 3XW Saturday Warfarin Sodium (Warfarin Sodium) 4 Mg Tablet, 6 MG PO 4XWK SATURDAY, SATURDAY, SATURDAY, SATURDAY [Imprimis Eye Drops] , 1 DROP OU TID Scheduled PRN Docusate Sodium (Colace) 100 Mg Cap, 100 MG PO DAILY PRN for CONSTIPATION Allergies Coded Allergies: amiodarone (Verified Allergy, Severe, legs turned blue, liver issue, 04/17/19) allopurinol (Verified Allergy, Intermediate, rash, 04/17/19) A-FIB/CHADSVASC A-FIB History Current/History of A-Fib/PAF?: Yes Current PO Anticoag Therapy: Yes GME ATTESTATION GME ATTESTATION My faculty preceptor for this patient encounter was physically present during the encounter and was fully available. All aspects of the patient interview, examination, medical decision making process, and medical care plan development were reviewed and approved by the faculty preceptor. The faculty preceptor is aware and concurs with the plan as stated in the body of this note and will attest to such by his/her cosignature. ATTENDING NOTE Patient was seen and examined by me personally with the residents and I agree with the above assessment and plan ROGELIO RODRIGUEZ DO Apr 01, 2020 12:33 ANDREW BOOTH MD Apr 11, 2020 14:17
[2020-04-01] MEDS: DIGOXIN 0.0625MG PER 1/2TABLET PO SCH (13:20)
[2020-04-01] MEDS: SPIRONOLACTONE 12.5MG PER 1/2 TABLET PO SCH (13:25)
[2020-04-01 14:00] VITALS: BP 117/64
[2020-04-01 14:47] LABS: HEMATOCRIT 25.9 % (42.0-52.0); HEMOGLOBIN 8.8 g/dl (13.5-17.5)
[2020-04-01 15:08] LABS: ALBUMIN 3.6 GM/DL (3.2-5.2); BILIRUBIN,TOTAL 0.5 MG/DL (0.2-1.0); CALCIUM LEVEL 8.6 MG/DL (8.8-10.2); CREATININE FOR GFR 1.7 MG/DL (0.70-1.30); GLOMERULAR FILTRATION RATE 42.3 (>42); POTASSIUM SERUM 4.3 MEQ/L (3.5-5.1); TOTAL PROTEIN 6.7 GM/DL (6.4-8.2)
[2020-04-01] MEDS ORDERED: WARFARIN SOD 4MG TAB PO SCH (17:00)
[2020-04-01] MEDS ORDERED: PHYTONADIONE 5 MG TAB PO ONE (17:30)
[2020-04-01] MEDS ORDERED: POLYETHYLENE GLYCOL (MIRALAX) 238GM BOTTLE PO ONE (18:00)
[2020-04-01] MEDS ORDERED: DOXAZOSIN MESYLATE 1 MG TAB PO SCH (21:00)
[2020-04-01] MEDS ORDERED: SIMVASTATIN 20 MG TAB PO SCH (21:00)
[2020-04-01] MEDS ORDERED: LEVOTHYROXINE 125MCG TABLET (0.125MG) PO SCH (21:00)
[2020-04-01] MEDS ORDERED: FOLIC ACID 1 MG TAB PO SCH (21:00)
[2020-04-01 22:00] VITALS: BP 115/63
[2020-04-01] MEDS: PANTOPRAZOLE 40MG VIAL (C9113 PER 1) IV SCH (22:16)
[2020-04-01] MEDS: ENTRESTO 49-51MG TABLET (SACUBITRIL/VALSARTAN) PO SCH (22:16)
[2020-04-01] MEDS: METOPROLOL SUCC (TopROL XL) 100MG *XL* TAB PO SCH (22:16)
[2020-04-02] VITALS (8 sets, daily range): BP systolic 100–108; BP diastolic 58–69
[2020-04-02] MEDS ORDERED: AMPICILLIN SOD 2 GM in D5W 50 ML IV ONE (07:00)
[2020-04-02] MEDS ORDERED: GENTAMICIN 100 MG in IV 1 EA IV ONE (07:00)
[2020-04-02] MEDS ORDERED: LIDOCAINE 2% 100MG/5ML SDV (FOR ANES.) As Ordered ONE (07:28)
[2020-04-02] MEDS ORDERED: propofoL 200 MG/20 ML VIAL As Ordered ONE (07:28)
[2020-04-02 08:06] LABS: INR 2.35; PROTHROMBIN TIME 26.2 SECONDS (11.8-14.0)
[2020-04-02] MEDS ORDERED: AMPICILLIN 2 GM VIAL (J0290 PER 500MG) As Ordered ONE (08:12)
[2020-04-02] MEDS ORDERED: fentaNYL 100 MCG/2 ML INJECTION (J3010) As Ordered ONE (08:21)
[2020-04-02 08:26] LABS: BASO % 0.3 % (0.0-1.0); EOS # 0.5 10^3/uL (0.0-0.5); EOS % 7.6 % (0.0-3.0); HEMATOCRIT 22.3 % (42.0-52.0); HEMOGLOBIN 7.6 g/dl (13.5-17.5); LYMPH # 1.3 10^3/uL (1.5-5.0); LYMPH % 21.7 % (24.0-44.0); MEAN CORPUSCULAR HEMOGLOBIN 32.1 pg (27.0-33.0); MEAN CORPUSCULAR HGB CONC 34.1 g/dl (32.0-36.5); MEAN CORPUSCULAR VOLUME 94.1 fl (80.0-96.0); MONO # 0.6 10^3/uL (0.0-0.8); NEUTROPHILS # 3.6 10^3/uL (1.5-8.5); NEUTROPHILS % 60.1 % (36.0-66.0); PLATELET COUNT, AUTOMATED 110 10^3/uL (150-450); RED BLOOD COUNT 2.37 10^6/uL (4.30-6.10)
[2020-04-02] MEDS ORDERED: PHENYLephrine HCL 500 MCG/5 ML (100MCG/ML) SYRINGE (J2370) As Ordered ONE ×2 (08:40→09:28)
[2020-04-02] MEDS ORDERED: AMPICILLIN 2 GM VIAL (J0290 PER 500MG) IV ONE (08:42)
[2020-04-02 08:48] LABS: CALCIUM LEVEL 8.5 MG/DL (8.8-10.2); CREATININE FOR GFR 1.58 MG/DL (0.70-1.30); POTASSIUM SERUM 4.3 MEQ/L (3.5-5.1)
[2020-04-02] MEDS: SPIRONOLACTONE 12.5MG PER 1/2 TABLET PO SCH (09:00)
[2020-04-02] MEDS: DIGOXIN 0.0625MG PER 1/2TABLET PO SCH (09:00)
[2020-04-02] MEDS: METOPROLOL SUCC (TopROL XL) 100MG *XL* TAB PO SCH (09:00)
[2020-04-02] MEDS: ENTRESTO 49-51MG TABLET (SACUBITRIL/VALSARTAN) PO SCH (09:00)
[2020-04-02] MEDS ORDERED: GLUCAGON INJ 1MG VIAL As Ordered ONE (09:16)
[2020-04-02] MEDS ORDERED: ONDANSETRON 4MG/2ML VIAL IV PRN (11:00)
[2020-04-02] MEDS ORDERED: LR 1,000 ML IV SCH (11:00)
[2020-04-02] MEDS: PANTOPRAZOLE 40MG VIAL (C9113 PER 1) IV SCH (11:37)
--- NOTE | 2020-04-02 14:29 | DS.PDOC ---
Discharge Summary General Date of Admission Apr 01, 2020 at 08:34 Date of Discharge 04/02/20 Discharge Summary PROCEDURES PERFORMED DURING STAY: [None]. ADMITTING DIAGNOSES: Lower GI Bleed Acute on chronic kidney injury Paroxysmal Afib Hx of CVA Dilated cardiomyopathy (EF 24% 04/2019) BPH HTN Hypothyroidism DISCHARGE DIAGNOSES: Lower GI Bleed Acute on chronic kidney injury Paroxysmal Afib Hx of CVA Dilated cardiomyopathy (EF 24% 04/2019) BPH HTN Hypothyroidism COMPLICATIONS/CHIEF COMPLAINT: Gi Bleed. HISTORY OF PRESENT ILLNESS:Patient is a 74 y/o Male presenting with multiple coffee ground stools since his screening colonoscopy yesterday with Dr. Ramirez. He was feeling fine after the procedure when sometime in the early evening he began having loose stools with coffee grounds happening multiple times per hour and continuing overnight. He called Dr. Ramirez this AM who recommended he to go to [facility] ED for and repeat colonoscopy to help stop the bleed given patient's history of an unspecified coagulopathy and hx of stroke in the past when warfarin was held, Dr. Ramirez would repeat the colonoscopy to help stop the bleed. Per the ED PA, he also recommended Q6H H/H. The patient denies any symptoms at this time and ED work up was unremarkable except for occult blood in his stool. He denied any dizziness, lightheadedness, weakness, fatigue, chest pain, or difficulty breathing. HOSPITAL COURSE: During hospital stay colonoscopy was done by Dr Ramirez, he was found small bleeding colon polyp, which was clipped. Official report pending. Pt received [address] Ramirez recommended to dc pt after blood transfusi on. DISCHARGE MEDICATIONS: Please see below. ALLERGIES: Please see below. PHYSICAL EXAMINATION ON DISCHARGE: VITAL SIGNS: See below. GENERAL APPEARANCE: Well appearing male laying comfortably in bed in [facility]. HEENT: NC, AT, EOMI, mucous membranes moist, no scleral icterus. No pharyngeal erythema or edema. CARDIOVASCULAR: Irregular rate and rhythm. Pansystolic murmur. No gallops or rubs. LUNGS: CTAB with full breath sounds. No wheezes, crackles, or rhonchi ABDOMEN: Soft, non-tender, non-distended. No masses or eccyhmosis EXTREMITIES: No swelling or LE edema NEUROLOGICAL: No focal motor or sensory deficits. PSYCHIATRIC: Normal mood and affect. LABORATORY DATA: Please see below. PROGNOSIS: fair ACTIVITY: [As tolerated]. DIET: cardiac DISPOSITION: home ITEMS TO FOLLOWUP ON ON OUTPATIENT: f/u with DISCHARGE CONDITION: [Stable]. TIME SPENT ON DISCHARGE: Greater than 20 minutes. Vital Signs/I&Os Vital Signs Date Time Temp Pulse Resp B/P (MAP) Pulse Ox O2 Delivery O2 Flow Rate FiO2 04/02/20 14:12 97.9 69 18 102/58 99 Room Air I&O- Last 24 Hours up to 6 AM 04/02/20 05:59 Intake Total 2160 ml Output Total 300 ml Balance 1860 ml Laboratory Data Labs 24H Laboratory Tests 2 04/02/20 07:40: Immature Granulocyte % (Auto) 0.3, Neutrophils (%) (Auto) 60.1, Lymphocytes (%) (Auto) 21.7L, Monocytes (%) (Auto) 10.0H, Eosinophils (%) (Auto) 7.6H, Basophils (%) (Auto) 0.3, Neutrophils # (Auto) 3.6, Lymphocytes # (Auto) 1.3L, Monocytes # (Auto) 0.6, Eosinophils # (Auto) 0.5, Basophils # (Auto) 0.0, Nucleated Red Blood Cells % (auto) 0.0, Anion Gap 7L, Glomerular Filtration Rate 46.0, Calcium Level 8.5L 04/02/20 07:43: Prothrombin Time 26.2H, Prothromb Time International Ratio 2.35 CBC/BMP Laboratory Tests 04/02/20 07:40 Discharge Medications Scheduled Aspirin (Aspir 81) 81 Mg Tab, 81 MG PO QHS, (Reported) Cholecalciferol (Vitamin D3) (Vitamin D3) 50 Mcg Tablet, 2,000 UNITS PO DAILY, (Reported) Digoxin (Digoxin) 125 Mcg Tablet, 62.5 MCG PO QAM, (Reported) Doxazosin Mesylate (Cardura) 1 Mg Tablet, 1 MG PO QHS, (Reported) Fish Oil/Dha/Epa (Fish Oil 1,200 mg Fish Oil) 1 Each Capsule, 1 CAP PO DAILY, (Reported) Folic Acid (Folic Acid) 1 Mg Tablet, 1 MG PO QHS, (Reported) Furosemide (Lasix) 40 Mg Tablet, 40 MG PO QAM, (Reported) Levothyroxine Sodium (Levoxyl) 125 Mcg Tab, 125 MCG PO QHS, (Reported) Metoprolol Succinate (Toprol Xl) 100 Mg Tab, 100 MG PO BID, (Reported) Multivitamin (Multivitamins) 1 Each Capsule, 1 CAP PO DAILY, (Reported) Sacubitril/Valsartan (Entresto 49 mg-51 mg Tablet) 1 Each Tablet, 1 TAB PO BID, (Reported) Simvastatin (Simvastatin) 20 Mg Tab, 20 MG PO QHS, (Reported) Spironolactone (Spironolactone) 25 Mg Tablet, 12.5 MG PO DAILY, (Reported) Warfarin Sodium (Warfarin Sodium) 2 Mg Tablet, 8 MG PO 3XW, (Reported) Saturday Warfarin Sodium (Warfarin Sodium) 4 Mg Tablet, 6 MG PO 4XWK, (Reported) SATURDAY, SATURDAY, SATURDAY, SATURDAY [Imprimis Eye Drops] , 1 DROP OU TID, (Reported) Scheduled PRN Docusate Sodium (Colace) 100 Mg Cap, 100 MG PO DAILY PRN for CONSTIPATION, (Reported) Allergies Coded Allergies: amiodarone (Verified Allergy, Severe, legs turned blue, liver issue, 04/17/19) allopurinol (Verified Allergy, Intermediate, rash, 04/17/19) MADELYN SUTHERLAND DO Apr 02, 2020 14:29
[2020-04-02] MEDS ORDERED: WARFARIN SOD 3MG TAB PO SCH (17:00)
== END 2020-04-02 17:00 | disposition home or self-care (01) ==
LOC: M ED 08:33 → M ED INP 08:34 → ENRESERV 11:51 → M MS5PR 12:21
PROVIDERS: ADMIT Internal Medicine; ATTEND Internal Medicine
DX: K62.5 Hemorrhage of anus and rectum (principal); K91.840 Postprocedural hemorrhage of a digestive system organ or structure following a digestive system procedure; D62 Acute posthemorrhagic anemia; N17.9 Acute kidney failure, unspecified; I13.0 Hypertensive heart and chronic kidney disease with heart failure and stage 1 through stage 4 chronic kidney disease, or unspecified chronic kidney disease; I50.9 Heart failure, unspecified; I48.0 Paroxysmal atrial fibrillation; I42.0 Dilated cardiomyopathy; N40.0 Benign prostatic hyperplasia without lower urinary tract symptoms; Z95.810 Presence of automatic (implantable) cardiac defibrillator; E03.9 Hypothyroidism, unspecified; D64.9 Anemia, unspecified; Z86.73 Personal history of transient ischemic attack (TIA), and cerebral infarction without residual deficits; N18.9 Chronic kidney disease, unspecified; Z79.899 Other long term (current) drug therapy; Z79.01 Long term (current) use of anticoagulants; Z79.82 Long term (current) use of aspirin; Z88.8 Allergy status to other drugs, medicaments and biological substances; Z87.891 Personal history of nicotine dependence
CPT/HCPCS: 36415; 36430; 43235; 45382; 80048; 80053; 84443; 85014; 85018; 85025; 85610; 85730; 86850; 86900; 86901; 86920; 96374; 96376; 99284; C9113; G0378; J0290; J1580; J1610; J2370; J3010; P9016

== ENCOUNTER → 2020-04-12 | Outpatient (CLI) | payer MEDICARE ==
[~2020-04-12] MED LIST changes: +DOXA1TAB42; +IMPRIMIS EYE DROPS OU; +VITA200010 PO; +WARF-20 PO; +WARF4TAB51 PO
[2020-04-12 13:30] LABS: BASO # 0.1 10^3/uL (0.0-0.2); BASO % 0.6 % (0.0-1.0); EOS # 0.5 10^3/uL (0.0-0.5); EOS % 5.8 % (0.0-3.0); HEMOGLOBIN 9.2 g/dl (13.5-17.5); LYMPH # 1.5 10^3/uL (1.5-5.0); MEAN CORPUSCULAR HEMOGLOBIN 31.7 pg (27.0-33.0); MEAN CORPUSCULAR HGB CONC 32.9 g/dl (32.0-36.5); MEAN CORPUSCULAR VOLUME 96.6 fl (80.0-96.0); MONO # 0.7 10^3/uL (0.0-0.8); MONO % 9.3 % (0.0-5.0); PLATELET COUNT, AUTOMATED 168 10^3/uL (150-450); WHITE BLOOD COUNT 7.7 10^3/uL (4.0-10.0)
[2020-04-12 14:22] LABS: ALBUMIN 4.2 GM/DL (3.2-5.2); BILIRUBIN,TOTAL 0.6 MG/DL (0.2-1.0); CALCIUM LEVEL 9.3 MG/DL (8.8-10.2); CREATININE FOR GFR 1.94 MG/DL (0.70-1.30); GLOMERULAR FILTRATION RATE 36.3 (>42); MAGNESIUM LEVEL 2.4 MG/DL (1.8-2.4); POTASSIUM SERUM 5.4 MEQ/L (3.5-5.1); THYROID STIMULATING HORMONE 2.39 uIU/ML (0.358-3.740); TOTAL PROTEIN 7.4 GM/DL (6.4-8.2); URIC ACID 10.9 MG/DL (3.5-7.2)
== END ==
LOC: M PLALAB 09:25
PROVIDERS: ATTEND Internal Medicine
DX: I12.9 Hypertensive chronic kidney disease with stage 1 through stage 4 chronic kidney disease, or unspecified chronic kidney disease (principal); D63.1 Anemia in chronic kidney disease; E03.9 Hypothyroidism, unspecified; M10.9 Gout, unspecified; N18.9 Chronic kidney disease, unspecified

== ENCOUNTER → 2020-07-07 | Outpatient (REF) | payer MEDICARE ==
[2020-07-07 17:45] LABS: BASO % 0.5 % (0.0-1.0); EOS # 0.4 10^3/uL (0.0-0.5); EOS % 4.6 % (0.0-3.0); HEMATOCRIT 30.9 % (42.0-52.0); HEMOGLOBIN 10.1 g/dl (13.5-17.5); LYMPH # 1.7 10^3/uL (1.5-5.0); LYMPH % 21.4 % (24.0-44.0); MEAN CORPUSCULAR HEMOGLOBIN 31.3 pg (27.0-33.0); MEAN CORPUSCULAR HGB CONC 32.7 g/dl (32.0-36.5); MEAN CORPUSCULAR VOLUME 95.7 fl (80.0-96.0); MONO # 0.8 10^3/uL (0.0-0.8); MONO % 9.5 % (0.0-5.0); NEUTROPHILS # 5.1 10^3/uL (1.5-8.5); NEUTROPHILS % 63.7 % (36.0-66.0); PLATELET COUNT, AUTOMATED 160 10^3/uL (150-450); RED BLOOD COUNT 3.23 10^6/uL (4.30-6.10)
[2020-07-07 18:04] LABS: HEMOGLOBIN A1c 5.5 %
[2020-07-07 18:29] LABS: ALBUMIN 4.1 GM/DL (3.2-5.2); BILIRUBIN,TOTAL 0.8 MG/DL (0.2-1.0); CALCIUM LEVEL 9.6 MG/DL (8.8-10.2); CHOLESTEROL RISK RATIO 2.285 (<5); CREATININE FOR GFR 2.01 MG/DL (0.70-1.30); GLOMERULAR FILTRATION RATE 34.7 (>42); MAGNESIUM LEVEL 2.5 MG/DL (1.8-2.4); POTASSIUM SERUM 4.6 MEQ/L (3.5-5.1); PTH INTACT 79.3 PG/ML (18.5-88.0); TOTAL PROTEIN 7.9 GM/DL (6.4-8.2); URIC ACID 10.3 MG/DL (3.5-7.2)
== END ==
LOC: M SFHCPLAZ 15:22
PROVIDERS: ATTEND Internal Medicine
DX: I12.9 Hypertensive chronic kidney disease with stage 1 through stage 4 chronic kidney disease, or unspecified chronic kidney disease (principal); N18.30 Chronic kidney disease, stage 3 unspecified; M10.9 Gout, unspecified; E78.00 Pure hypercholesterolemia, unspecified; R73.01 Impaired fasting glucose; D63.1 Anemia in chronic kidney disease

== ENCOUNTER → 2021-01-03 | Outpatient (REF) | payer MEDICARE ==
[2021-01-03 11:01] LABS: BASO % 0.3 % (0.0-1.0); EOS # 0.3 10^3/uL (0.0-0.5); EOS % 4.5 % (0.0-3.0); HEMATOCRIT 32.1 % (42.0-52.0); HEMOGLOBIN 10.3 g/dl (13.5-17.5); LYMPH % 16.5 % (24.0-44.0); MEAN CORPUSCULAR HEMOGLOBIN 31.1 pg (27.0-33.0); MEAN CORPUSCULAR HGB CONC 32.1 g/dl (32.0-36.5); MONO # 0.7 10^3/uL (0.0-0.8); MONO % 10.7 % (2.0-8.0); NEUTROPHILS # 4.2 10^3/uL (1.5-8.5); NEUTROPHILS % 67.7 % (36.0-66.0); PLATELET COUNT, AUTOMATED 121 10^3/uL (150-450); RED BLOOD COUNT 3.31 10^6/uL (4.30-6.10); WHITE BLOOD COUNT 6.2 10^3/uL (4.0-10.0)
[2021-01-03 12:04] LABS: ALBUMIN 3.7 GM/DL (3.2-5.2); BILIRUBIN,TOTAL 0.9 MG/DL (0.2-1.0); CALCIUM LEVEL 8.7 MG/DL (8.8-10.2); CREATININE FOR GFR 1.92 MG/DL (0.70-1.30); GLOMERULAR FILTRATION RATE 36.6 (>42); MAGNESIUM LEVEL 2.5 MG/DL (1.8-2.4); POTASSIUM SERUM 5.1 MEQ/L (3.5-5.1); PTH INTACT 82.8 PG/ML (18.5-88.0); THYROID STIMULATING HORMONE 2.57 uIU/ML (0.358-3.740); TOTAL PROTEIN 7.3 GM/DL (6.4-8.2); URIC ACID 8.3 MG/DL (3.5-7.2)
== END ==
LOC: M PLALAB 08:15
PROVIDERS: ATTEND Internal Medicine
DX: I12.9 Hypertensive chronic kidney disease with stage 1 through stage 4 chronic kidney disease, or unspecified chronic kidney disease (principal); N18.30 Chronic kidney disease, stage 3 unspecified; E03.9 Hypothyroidism, unspecified; G47.37 Central sleep apnea in conditions classified elsewhere; Z79.01 Long term (current) use of anticoagulants

== ENCOUNTER → 2021-07-11 | Outpatient (CLI) | payer MEDICARE ==
[2021-07-11 10:48] LABS: BASO % 0.5 % (0.0-1.0); EOS # 0.3 10^3/uL (0.0-0.5); EOS % 4.3 % (0.0-3.0); HEMATOCRIT 32.2 % (42.0-52.0); HEMOGLOBIN 10.6 g/dl (13.5-17.5); LYMPH # 1.1 10^3/uL (1.5-5.0); LYMPH % 14.6 % (24.0-44.0); MEAN CORPUSCULAR HEMOGLOBIN 32.2 pg (27.0-33.0); MEAN CORPUSCULAR HGB CONC 32.9 g/dl (32.0-36.5); MEAN CORPUSCULAR VOLUME 97.9 fl (80.0-96.0); MONO # 0.7 10^3/uL (0.0-0.8); MONO % 9.6 % (2.0-8.0); NEUTROPHILS # 5.2 10^3/uL (1.5-8.5); NEUTROPHILS % 70.9 % (36.0-66.0); PLATELET COUNT, AUTOMATED 138 10^3/uL (150-450); RED BLOOD COUNT 3.29 10^6/uL (4.30-6.10); WHITE BLOOD COUNT 7.4 10^3/uL (4.0-10.0)
[2021-07-11 11:28] LABS: ALBUMIN 3.8 GM/DL (3.2-5.2); BILIRUBIN,TOTAL 0.7 MG/DL (0.2-1.0); CALCIUM LEVEL 9.5 MG/DL (8.8-10.2); CHOLESTEROL RISK RATIO 2.722 (<5); CREATININE FOR GFR 1.94 MG/DL (0.70-1.30); GLOMERULAR FILTRATION RATE 36.1 (>42); MAGNESIUM LEVEL 2.8 MG/DL (1.8-2.4); POTASSIUM SERUM 5.2 MEQ/L (3.5-5.1); TOTAL PROTEIN 7.5 GM/DL (6.4-8.2)
[2021-07-11 11:32] LABS: PTH INTACT 84.2 PG/ML (18.5-88.0)
== END ==
LOC: M PLALAB 09:00
PROVIDERS: ATTEND Internal Medicine
DX: I12.9 Hypertensive chronic kidney disease with stage 1 through stage 4 chronic kidney disease, or unspecified chronic kidney disease (principal); N18.30 Chronic kidney disease, stage 3 unspecified; Z12.5 Encounter for screening for malignant neoplasm of prostate; M10.9 Gout, unspecified; G47.37 Central sleep apnea in conditions classified elsewhere
CPT/HCPCS: 36415; 80053; 80061; 83735; 83970; 84550; 85025; G0103

== ENCOUNTER → 2022-01-16 | Outpatient (CLI) | payer MEDICARE ==
[2022-01-16 14:27] LABS: BASO % 0.3 % (0.0-1.0); EOS # 0.3 10^3/uL (0.0-0.5); EOS % 3.8 % (0.0-3.0); HEMATOCRIT 31.4 % (42.0-52.0); HEMOGLOBIN 10.1 g/dl (13.5-17.5); LYMPH # 1.1 10^3/uL (1.5-5.0); LYMPH % 12.3 % (24.0-44.0); MEAN CORPUSCULAR HEMOGLOBIN 30.9 pg (27.0-33.0); MEAN CORPUSCULAR HGB CONC 32.2 g/dl (32.0-36.5); MONO # 0.9 10^3/uL (0.0-0.8); NEUTROPHILS # 6.5 10^3/uL (1.5-8.5); NEUTROPHILS % 73.3 % (36.0-66.0); PLATELET COUNT, AUTOMATED 145 10^3/uL (150-450); RED BLOOD COUNT 3.27 10^6/uL (4.30-6.10); WHITE BLOOD COUNT 8.8 10^3/uL (4.0-10.0)
[2022-01-16 15:21] LABS: HEMOGLOBIN A1c 5.9 %
[2022-01-16 15:52] LABS: ALBUMIN 3.4 GM/DL (3.2-5.2); BILIRUBIN,TOTAL 0.8 MG/DL (0.2-1.0); CALCIUM LEVEL 8.5 MG/DL (8.8-10.2); CREATININE FOR GFR 2.32 MG/DL (0.70-1.30); GLOMERULAR FILTRATION RATE 29.4 (>42); MAGNESIUM LEVEL 2.4 MG/DL (1.8-2.4); POTASSIUM SERUM 4.6 MEQ/L (3.5-5.1); PTH INTACT 95.3 PG/ML (18.5-88.0); THYROID STIMULATING HORMONE 2.04 uIU/ML (0.358-3.740); TOTAL PROTEIN 7.1 GM/DL (6.4-8.2); URIC ACID 11.3 MG/DL (3.5-7.2)
== END ==
LOC: M PLALAB 09:46
PROVIDERS: ATTEND Internal Medicine
DX: I12.9 Hypertensive chronic kidney disease with stage 1 through stage 4 chronic kidney disease, or unspecified chronic kidney disease (principal); N18.30 Chronic kidney disease, stage 3 unspecified; E03.9 Hypothyroidism, unspecified; R73.01 Impaired fasting glucose; M10.9 Gout, unspecified; Z12.5 Encounter for screening for malignant neoplasm of prostate; D63.1 Anemia in chronic kidney disease
CPT/HCPCS: 36415; 80053; 83036; 83735; 83970; 84443; 84550; 85025; G0103

== ENCOUNTER → 2022-03-26 | Outpatient (CLI) | payer MEDICARE ==
[2022-03-27 13:07] LABS: IgG P18 AB Absent (.); IgG P23 AB Absent (.); IgG P28 AB Absent (.); IgG P30 AB Absent (.); IgG P39 AB Absent (.); IgG P41 AB Absent (.); IgG P45 AB Absent (.); IgG P66 AB Absent (.); IgG P93 AB Absent (.); IgM P23 AB Absent (.); IgM P39 AB Absent (.); IgM P41 AB Absent (.); LYME IgG WB INTERPRETATION Negative (.); LYME IgM WB INTERPRETATION Negative (.)
== END ==
LOC: M PLALAB 10:10
PROVIDERS: ATTEND Physician Assistant Medical
DX: M10.9 Gout, unspecified (principal); L08.9 Local infection of the skin and subcutaneous tissue, unspecified

== ENCOUNTER → 2022-08-07 | Outpatient (REF) | payer MEDICARE ==
[2022-08-07 11:37] LABS: HEMATOCRIT 31.1 % (42.0-52.0); HEMOGLOBIN 9.9 g/dl (13.5-17.5); MEAN CORPUSCULAR HEMOGLOBIN 29.8 pg (27.0-33.0); MEAN CORPUSCULAR HGB CONC 31.8 g/dl (32.0-36.5); MEAN CORPUSCULAR VOLUME 93.7 fl (80.0-96.0); PLATELET COUNT, AUTOMATED 189 10^3/uL (150-450); RED BLOOD COUNT 3.32 10^6/uL (4.30-6.10); WHITE BLOOD COUNT 10.6 10^3/uL (4.0-10.0)
[2022-08-07 11:50] LABS: HEMOGLOBIN A1c 5.8 % (4.0-6.0)
[2022-08-07 12:05] LABS: FERRITIN 128.5 NG/ML (10.5-307.3); FREE T4 1.29 NG/DL (0.89-1.76); THYROID STIMULATING HORMONE 1.74 uIU/ML (0.55-4.78); URIC ACID 11.6 MG/DL (3.7-9.2)
[2022-08-07 12:07] LABS: TOTAL 25(OH) VITAMIN D 59.3 NG/ML (20.0-100.0)
[2022-08-07 12:08] LABS: ALBUMIN 3.4 G/DL (3.2-5.2); BILIRUBIN,TOTAL 1.9 MG/DL (0.3-1.2); CHOLESTEROL RISK RATIO 2.58 (<5); CREATININE FOR GFR 2.1 MG/DL (0.70-1.30); GLOMERULAR FILTRATION RATE 32.9 (>42); HDL CHOLESTEROL 36.8 MG/DL (>40); LDL CHOLESTEROL 48.2 MG/DL (<100); PERCENT SATURATION 17.5 % (19.7-50.0); POTASSIUM SERUM 4.5 MMOL/L (3.5-5.1)
[2022-08-07 13:07] LABS: C REACTIVE PROTEIN QUANTITATIV 6.8 MG/DL (<1.0)
[2022-08-08 14:14] LABS: CREATININE, URINE 85.6 MG/DL
== END ==
LOC: M SFHCPLAZ 08:28
PROVIDERS: ATTEND Internal Medicine Hematology
DX: E78.00 Pure hypercholesterolemia, unspecified (principal); D63.1 Anemia in chronic kidney disease; M10.9 Gout, unspecified; Z79.899 Other long term (current) drug therapy

== ENCOUNTER → 2022-08-08 | Outpatient (REF) | payer MEDICARE ==
[~2022-08-08] MED LIST changes: -CARD1TAB4 PO; +DOXA1TAB91 PO
== END ==
LOC: M SFHCPLAZ 11:45
PROVIDERS: ATTEND Internal Medicine Hematology
DX: M10.9 Gout, unspecified (principal); R97.20 Elevated prostate specific antigen [PSA]; E78.00 Pure hypercholesterolemia, unspecified

== ENCOUNTER → 2022-11-27 | Outpatient (REF) | payer MEDICARE ==
[2022-11-27 18:36] LABS: HEMATOCRIT 31.3 % (42.0-52.0); MEAN CORPUSCULAR HEMOGLOBIN 31.1 pg (27.0-33.0); MEAN CORPUSCULAR HGB CONC 31.9 g/dl (32.0-36.5); MEAN CORPUSCULAR VOLUME 97.2 fl (80.0-96.0); PLATELET COUNT, AUTOMATED 118 10^3/uL (150-450); RED BLOOD COUNT 3.22 10^6/uL (4.30-6.10); WHITE BLOOD COUNT 5.7 10^3/uL (4.0-10.0)
[2022-11-27 19:04] LABS: ALBUMIN 3.6 G/DL (3.2-5.2); BILIRUBIN,TOTAL 1.1 MG/DL (0.3-1.2); CALCIUM LEVEL 8.8 MG/DL (8.3-10.6); CREATININE FOR GFR 2.69 MG/DL (0.70-1.30); GLOMERULAR FILTRATION RATE 24.7 (>42); POTASSIUM SERUM 4.9 MMOL/L (3.5-5.1); TOTAL PROTEIN 6.6 G/DL (5.7-8.2)
== END ==
LOC: M LABDRWAD 17:06
PROVIDERS: ATTEND Nurse Practitioner Adult Health
DX: I50.9 Heart failure, unspecified (principal); E83.42 Hypomagnesemia; Z79.899 Other long term (current) drug therapy

== ENCOUNTER → 2022-11-27 | Outpatient (REF) | payer MEDICARE ==
[2022-11-27 18:37] LABS: HEMATOCRIT 31.6 % (42.0-52.0); MEAN CORPUSCULAR HEMOGLOBIN 30.9 pg (27.0-33.0); MEAN CORPUSCULAR HGB CONC 31.6 g/dl (32.0-36.5); MEAN CORPUSCULAR VOLUME 97.5 fl (80.0-96.0); PLATELET COUNT, AUTOMATED 119 10^3/uL (150-450); RED BLOOD COUNT 3.24 10^6/uL (4.30-6.10); WHITE BLOOD COUNT 5.7 10^3/uL (4.0-10.0)
[2022-11-27 18:39] LABS: C REACTIVE PROTEIN QUANTITATIV < 0.40 MG/DL (<1.0); FREE T4 1.25 NG/DL (0.89-1.76); THYROID STIMULATING HORMONE 5.935 uIU/ML (0.55-4.78)
[2022-11-27 18:40] LABS: ALBUMIN 3.6 G/DL (3.2-5.2); ALKALINE PHOSPHATASE 103 U/L (46-116); ALT/SGPT 19 U/L (7.0-40); AST/SGOT 18 U/L (<34); BILIRUBIN,TOTAL 1.1 MG/DL (0.3-1.2); BLOOD UREA NITROGEN 69 MG/DL (9-23); CALCIUM LEVEL 8.8 MG/DL (8.3-10.6); CARBON DIOXIDE LEVEL 28 MMOL/L (20-31); CHLORIDE LEVEL 100 MMOL/L (98-107); CHOLESTEROL LEVEL 73 MG/DL (<200); CHOLESTEROL RISK RATIO 2.58 (<5); CREATININE FOR GFR 2.68 MG/DL (0.70-1.30); GLOMERULAR FILTRATION RATE 24.8 (>42); GLUCOSE, FASTING 114 MG/DL (74-106); HDL CHOLESTEROL 28.2 MG/DL (>40); LDL CHOLESTEROL 33.2 MG/DL (<100); NON-HDL-C 44.8 MG/DL; POTASSIUM SERUM 4.8 MMOL/L (3.5-5.1); SODIUM LEVEL 137 MMOL/L (136-145); TOTAL PROTEIN 6.6 G/DL (5.7-8.2); TRIGLYCERIDES LEVEL 58 MG/DL (<150)
[2022-11-27 18:41] LABS: TOTAL 25(OH) VITAMIN D 53.8 NG/ML (20.0-100.0)
[2022-11-27 18:42] LABS: VITAMIN B12 LEVEL 996 PG/ML (211-911)
[2022-11-27 19:01] LABS: CREATININE, URINE 60.8 MG/DL
[2022-11-27 20:24] LABS: HEMOGLOBIN A1c 5.7 % (4.0-6.0)
== END ==
LOC: M SFHCPLAZ 11:12
PROVIDERS: ATTEND Internal Medicine Hematology
DX: E78.00 Pure hypercholesterolemia, unspecified (principal); I50.9 Heart failure, unspecified; E83.42 Hypomagnesemia; Z79.899 Other long term (current) drug therapy

== ENCOUNTER → 2022-12-11 | Outpatient (REF) | payer MEDICARE ==
[2022-12-11 12:12] LABS: HEMATOCRIT 31.4 % (42.0-52.0); HEMOGLOBIN 10.2 g/dl (13.5-17.5); MEAN CORPUSCULAR HEMOGLOBIN 30.8 pg (27.0-33.0); MEAN CORPUSCULAR HGB CONC 32.5 g/dl (32.0-36.5); MEAN CORPUSCULAR VOLUME 94.9 fl (80.0-96.0); PLATELET COUNT, AUTOMATED 124 10^3/uL (150-450); RED BLOOD COUNT 3.31 10^6/uL (4.30-6.10); WHITE BLOOD COUNT 5.7 10^3/uL (4.0-10.0)
[2022-12-11 12:31] LABS: ALBUMIN 3.6 G/DL (3.2-5.2); BILIRUBIN,TOTAL 1.4 MG/DL (0.3-1.2); CALCIUM LEVEL 8.7 MG/DL (8.3-10.6); CREATININE FOR GFR 2.61 MG/DL (0.70-1.30); GLOMERULAR FILTRATION RATE 25.6 (>42); POTASSIUM SERUM 4.5 MMOL/L (3.5-5.1); TOTAL PROTEIN 6.7 G/DL (5.7-8.2)
== END ==
LOC: M LABDRAWC 11:28
PROVIDERS: ATTEND Nurse Practitioner Adult Health
DX: I50.9 Heart failure, unspecified (principal); E83.42 Hypomagnesemia; Z79.899 Other long term (current) drug therapy

== ENCOUNTER → 2023-06-18 | Outpatient (CLI) | payer MEDICARE ==
[2023-06-18 13:26] LABS: BASO % 0.5 % (0.0-1.0); EOS # 0.4 10^3/uL (0.0-0.5); EOS % 4.8 % (0.0-3.0); HEMOGLOBIN 8.1 g/dl (13.5-17.5); LYMPH # 0.8 10^3/uL (1.5-5.0); LYMPH % 8.9 % (24.0-44.0); MEAN CORPUSCULAR HEMOGLOBIN 33.1 pg (27.0-33.0); MEAN CORPUSCULAR HGB CONC 33.8 g/dl (32.0-36.5); MONO # 0.9 10^3/uL (0.0-0.8); MONO % 11.1 % (2.0-8.0); NEUTROPHILS # 6.3 10^3/uL (1.5-8.5); NEUTROPHILS % 74.2 % (36.0-66.0); PLATELET COUNT, AUTOMATED 164 10^3/uL (150-450); RED BLOOD COUNT 2.45 10^6/uL (4.30-6.10); WHITE BLOOD COUNT 8.5 10^3/uL (4.0-10.0)
[2023-06-18 13:39] LABS: INR 2.09; PROTHROMBIN TIME 22.8 SECONDS (12.5-14.5)
[2023-06-18 13:40] LABS: PARTIAL THROMBOPLASTIN TIME 35.5 SECONDS (24.8-34.2)
[2023-06-18 13:49] LABS: URIC ACID 15.3 MG/DL (3.7-9.2)
== END ==
LOC: M PLALAB 10:44 → M LAB 10:44
PROVIDERS: ATTEND Internal Medicine Hematology
DX: E61.1 Iron deficiency (principal); M10.9 Gout, unspecified; Z79.01 Long term (current) use of anticoagulants

== ENCOUNTER → 2023-06-18 | Outpatient (CLI) | payer MEDICARE | LOC: M RAD 08:55 | PROVIDERS: ATTEND Physician Assistant Medical | DX: R93.3 Abnormal findings on diagnostic imaging of other parts of digestive tract (principal); K80.80 Other cholelithiasis without obstruction; N28.1 Cyst of kidney, acquired ==

== ENCOUNTER 2023-06-19 08:22 | Outpatient (CLI) | payer MEDICARE ==
[~2023-06-19] VITALS: Ht 185.4 cm; Wt 82.0 kg
[2023-06-19 13:02] VITALS: BP 96/50; O2SAT 100
[2023-06-19 13:30] VITALS: BP 97/52; TEMP 97.3; O2SAT 100
[2023-06-19 15:10] VITALS: BP 103/52; TEMP 97; O2SAT 100
== END 2023-06-19 15:45 ==
LOC: M INFU 08:22
PROVIDERS: ATTEND Internal Medicine Hematology
DX: D64.9 Anemia, unspecified (principal); Z88.8 Allergy status to other drugs, medicaments and biological substances
CPT/HCPCS: 36415; 36430; 86850; 86900; 86901; 86920; P9016

== ENCOUNTER 2023-06-27 12:40 | Outpatient (CLI) | payer MEDICARE ==
[2023-06-27 12:53] VITALS: BP 99/51; O2SAT 98
[2023-06-27 15:05] VITALS: BP 95/51; TEMP 98.1; O2SAT 100
[2023-06-27 16:20] VITALS: BP 96/51; TEMP 97.6; O2SAT 100
== END 2023-06-27 16:35 | disposition home or self-care (01) ==
LOC: M INFU 12:40
PROVIDERS: ATTEND Internal Medicine Hematology
DX: D64.9 Anemia, unspecified (principal); Z88.8 Allergy status to other drugs, medicaments and biological substances
CPT/HCPCS: 36430; 36592; 86850; 86900; 86901; 86920; P9016

== ENCOUNTER 2023-06-28 12:05 | Outpatient (CLI) | payer MEDICARE ==
[~2023-06-28] VITALS: Ht 185.4 cm; Wt 80.9 kg
[~2023-06-28 12:05] MED LIST changes: +ALBUTEROL SULFATE 2.5MG/0.5ML INH NEB SOLN INH PRN; +EPINEPHrine INJ 1 MG/ML 1ML AMP IM PRN; +NS 1,000 ML IV SCH; +diphenhydrAMINE 50MG/ML VIAL IV PRN; +methylPREDNISolone 125MG 2ML VIAL IV PRN
[2023-06-28 12:15] VITALS: BP 95/51; O2SAT 99
[2023-06-28] MEDS ORDERED: IRON SUCROSE 200 MG in NS 100 ML IV ONE (12:30)
[2023-06-28 13:40] VITALS: BP 95/52; O2SAT 100
== END 2023-06-28 13:50 ==
LOC: M INFU 12:05
PROVIDERS: ATTEND Internal Medicine Hematology
DX: D50.9 Iron deficiency anemia, unspecified (principal); Z88.8 Allergy status to other drugs, medicaments and biological substances
CPT/HCPCS: 96365; J1756

== ENCOUNTER 2023-07-04 13:00 | Outpatient (CLI) | payer MEDICARE ==
[~2023-07-04] VITALS: Ht 182.9 cm; Wt 81.0 kg
[2023-07-04 13:00] VITALS: BP 94/51; O2SAT 97
[~2023-07-04 13:00] MED LIST changes: +IRON SUCROSE 200 MG in NS 100 ML OVER 1 HR IV ONE
[2023-07-04 14:30] VITALS: BP 93/52; O2SAT 100
[2023-07-08] MEDS ORDERED: TORS20TA2 PO (14:32)
[2023-07-08] MEDS ORDERED: VITMTA PO (14:32)
== END 2023-07-04 14:31 | disposition home or self-care (01) ==
LOC: M INFU 13:00
PROVIDERS: ATTEND Internal Medicine Hematology
DX: D50.9 Iron deficiency anemia, unspecified (principal); Z88.8 Allergy status to other drugs, medicaments and biological substances
CPT/HCPCS: 96365; J1756

== ENCOUNTER 2023-07-11 13:00 | Outpatient (CLI) | payer MEDICARE ==
[~2023-07-11] VITALS: Ht 175.3 cm; Wt 82.0 kg
[~2023-07-11 13:00] MED LIST changes: +IRON SUCROSE 200 MG in NS 100 ML IV ONE; -IRON SUCROSE 200 MG in NS 100 ML OVER 1 HR IV ONE; +TORS20TA2 PO; +VITMTA PO
[2023-07-11 13:15] VITALS: BP 98/52; O2SAT 96
== END 2023-07-11 14:50 | disposition home or self-care (01) ==
LOC: M INFU 13:00
PROVIDERS: ATTEND Internal Medicine Hematology
DX: G35 Multiple sclerosis (principal); Z88.8 Allergy status to other drugs, medicaments and biological substances
CPT/HCPCS: 96365; J1756

== ENCOUNTER 2023-07-15 13:15 | Day surgery (SDC) | payer MEDICARE ==
[~2023-07-15] VITALS: Ht 182.9 cm; Wt 81.2 kg
[~2023-07-15 13:15] MED LIST changes: -ALBUTEROL SULFATE 2.5MG/0.5ML INH NEB SOLN INH PRN; -EPINEPHrine INJ 1 MG/ML 1ML AMP IM PRN; -IRON SUCROSE 200 MG in NS 100 ML IV ONE; +NS 1,000 ML IV ONE; -NS 1,000 ML IV SCH; -diphenhydrAMINE 50MG/ML VIAL IV PRN; +fentaNYL 100 MCG/2 ML INJECTION As Ordered ONE; -methylPREDNISolone 125MG 2ML VIAL IV PRN
[2023-07-15 15:02] VITALS: TEMP 97.3
[2023-07-15 15:15] VITALS: BP 83/59; O2SAT 100
[2023-07-15] MEDS ORDERED: propofoL 200 MG/20 ML VIAL As Ordered ONE (17:06)
== END 2023-07-15 15:28 | disposition home or self-care (01) ==
LOC: M OPP 13:15
PROVIDERS: ATTEND Internal Medicine Gastroenterology
DX: K92.2 Gastrointestinal hemorrhage, unspecified (principal); K74.60 Unspecified cirrhosis of liver; I50.9 Heart failure, unspecified; G47.30 Sleep apnea, unspecified; I48.91 Unspecified atrial fibrillation; I35.9 Nonrheumatic aortic valve disorder, unspecified; Z87.891 Personal history of nicotine dependence; Z79.01 Long term (current) use of anticoagulants; Z79.02 Long term (current) use of antithrombotics/antiplatelets; Z79.890 Hormone replacement therapy; Z79.899 Other long term (current) drug therapy; Z88.8 Allergy status to other drugs, medicaments and biological substances

== ENCOUNTER 2023-11-12 12:19 | Inpatient (IN) | payer MEDICARE ==
[~2023-11-12] VITALS: Ht 182.9 cm; Wt 90.0 kg
[2023-11-12] VITALS (10 sets, daily range): BP systolic 93–107; BP diastolic 48–65; TEMP 96.8–97.8; O2SAT 97–100
[~2023-11-12 12:19] MED LIST changes: -NS 1,000 ML IV ONE; -fentaNYL 100 MCG/2 ML INJECTION As Ordered ONE
[2023-11-12] MEDS ORDERED: PROC20004 SC (12:37)
[2023-11-12] MEDS ORDERED: METO25TA PO (12:37)
[2023-11-12] MEDS ORDERED: PANT40TA29 PO (12:37)
[2023-11-12] MEDS ORDERED: FARX1TAB3 PO (12:37)
[2023-11-12 14:54] LABS: BASO % 0.2 % (0.0-1.0); EOS # 0.4 10^3/uL (0.0-0.5); EOS % 6.5 % (0.0-3.0); LYMPH # 0.7 10^3/uL (1.5-5.0); MEAN CORPUSCULAR HEMOGLOBIN 29.2 pg (27.0-33.0); MEAN CORPUSCULAR HGB CONC 31.8 g/dl (32.0-36.5); MEAN CORPUSCULAR VOLUME 91.9 fl (80.0-96.0); MONO # 0.7 10^3/uL (0.0-0.8); MONO % 11.1 % (2.0-8.0); NEUTROPHILS # 4.6 10^3/uL (1.5-8.5); NEUTROPHILS % 71.7 % (36.0-66.0); PLATELET COUNT, AUTOMATED 176 10^3/uL (150-450); RED BLOOD COUNT 2.09 10^6/uL (4.30-6.10); WHITE BLOOD COUNT 6.5 10^3/uL (4.0-10.0)
[2023-11-12 14:57] LABS: HEMATOCRIT 19.2 % (42.0-52.0); HEMOGLOBIN 6.1 g/dl (13.5-17.5); INR 2.57; PARTIAL THROMBOPLASTIN TIME 41.6 SECONDS (24.8-34.2); PROTHROMBIN TIME 26.7 SECONDS (12.5-14.5)
[2023-11-12] MEDS: PANTOPRAZOLE 40MG VIAL IV ONE (15:05)
[2023-11-12] MEDS: NS 500 ML IV ONE (15:05)
[2023-11-12 15:10] LABS: LIPASE 141 U/L (12-53)
[2023-11-12 15:48] LABS: ALBUMIN 2.8 G/DL (3.2-5.2); ALKALINE PHOSPHATASE 140 U/L (46-116); ALT/SGPT 24 U/L (7.0-40); AST/SGOT 24 U/L (<34); BILIRUBIN,DIRECT 0.3 MG/DL (<0.4); BILIRUBIN,TOTAL 0.6 MG/DL (0.3-1.2); BLOOD UREA NITROGEN 138 MG/DL (9-23); CALCIUM LEVEL 8.8 MG/DL (8.3-10.6); CARBON DIOXIDE LEVEL 28 MMOL/L (20-31); CHLORIDE LEVEL 97 MMOL/L (98-107); CREATININE FOR GFR 3.59 MG/DL (0.70-1.30); DIGOXIN LEVEL 1.4 NG/ML (0.8-2.0); GLOMERULAR FILTRATION RATE 17.6 (>42); GLUCOSE, FASTING 111 MG/DL (74-106); POTASSIUM SERUM 4.2 MMOL/L (3.5-5.1); SODIUM LEVEL 135 MMOL/L (136-145)
[2023-11-12] MEDS ORDERED: MOM 30ML SUSPENSION UDC PO PRN (17:35)
[2023-11-12] MEDS ORDERED: ACETAMINOPHEN TAB 650MG DOSE (2X325MG) PO PRN (17:35)
[2023-11-12] MEDS ORDERED: MAALOX 30 ML SUSP *UDC PO PRN (17:35)
[2023-11-12] MEDS ORDERED: THERTAB52 PO (18:08)
[2023-11-12] MEDS ORDERED: FOLI1TAB11 PO (18:08)
[2023-11-12] MEDS ORDERED: LEVOTAB10 PO (18:08)
[2023-11-12] MEDS ORDERED: DOXA1TAB42 PO (18:08)
[2023-11-12] MEDS ORDERED: JANT4TAB PO (18:08)
[2023-11-12] MEDS ORDERED: REFR1DRO8 OU (18:08)
[2023-11-12] MEDS ORDERED: AUGM0.05 TOP (18:08)
[2023-11-12] MEDS ORDERED: LEVO125T41 PO (18:08)
[2023-11-12] MEDS ORDERED: ARTIFICIAL TEARS DROPS 15ML BTL (VISINE DRY RELIEF) OU PRN (18:15)
[2023-11-12] MEDS ORDERED: HOME MED LIST COMPLETE! XX SCH (18:15)
[2023-11-12 18:31] LABS: VITAMIN B12 LEVEL 1363 PG/ML (211-911)
[2023-11-12 18:34] LABS: LDH LACTATE DEHYDROGENASE 322 U/L (120-246)
[2023-11-12 18:35] LABS: IRON (FE) 21 UG/DL (65-175); PERCENT SATURATION 5.8 % (19.7-50.0); TOTAL IRON BINDING CAPACITY 364 UG/DL (250-425)
[2023-11-12 18:39] LABS: FERRITIN 46.7 NG/ML (10.5-307.3); FOLATE > 24.0 NG/ML (>5.4)
[2023-11-12] MEDS: METOPROLOL SUCC (TopROL XL) 100MG *XL* TAB PO SCH (21:00)
[2023-11-12] MEDS ORDERED: WARFARIN SOD 4MG TAB PO SCH (21:00)
[2023-11-12] MEDS ORDERED: PANTOPRAZOLE 40MG TAB (PROTONIX) PO SCH (21:00)
[2023-11-12] MEDS: DOCUSATE SODIUM 100MG CAPSULE PO SCH (21:00)
[2023-11-12] MEDS: DOXAZOSIN MESYLATE 1 MG TAB PO SCH (21:00)
[2023-11-12] MEDS: SIMVASTATIN 20 MG TAB PO SCH (21:03)
[2023-11-12] MEDS: FOLIC ACID 1MG TAB PO SCH (21:03)
[2023-11-12] MEDS: WARFARIN SOD 4MG TAB PO SCH (22:36)
[2023-11-13] VITALS (11 sets, daily range): BP systolic 90–111; BP diastolic 51–64; TEMP 97–97.6; O2SAT 95–100
[2023-11-13 00:21] LABS: HEMATOCRIT 24.5 % (42.0-52.0)
[2023-11-13] MEDS: PANTOPRAZOLE 40MG VIAL IV SCH (03:40)
[2023-11-13 05:47] LABS: BASO % 0.5 % (0.0-1.0); EOS # 0.4 10^3/uL (0.0-0.5); EOS % 6.4 % (0.0-3.0); HEMATOCRIT 23.4 % (42.0-52.0); HEMOGLOBIN 7.6 g/dl (13.5-17.5); LYMPH # 0.6 10^3/uL (1.5-5.0); LYMPH % 10.4 % (24.0-44.0); MEAN CORPUSCULAR HGB CONC 32.5 g/dl (32.0-36.5); MEAN CORPUSCULAR VOLUME 89.3 fl (80.0-96.0); MONO # 0.7 10^3/uL (0.0-0.8); MONO % 12.1 % (2.0-8.0); NEUTROPHILS # 4.2 10^3/uL (1.5-8.5); NEUTROPHILS % 70.4 % (36.0-66.0); PLATELET COUNT, AUTOMATED 170 10^3/uL (150-450); RED BLOOD COUNT 2.62 10^6/uL (4.30-6.10)
[2023-11-13] MEDS: LEVOTHYROXINE 125MCG TABLET (0.125MG) PO SCH (05:58)
[2023-11-13 06:01] LABS: INR 2.55; PROTHROMBIN TIME 26.5 SECONDS (12.5-14.5)
[2023-11-13 06:13] LABS: ALBUMIN 2.5 G/DL (3.2-5.2); BILIRUBIN,TOTAL 1.5 MG/DL (0.3-1.2); CALCIUM LEVEL 8.6 MG/DL (8.3-10.6); CREATININE FOR GFR 3.54 MG/DL (0.70-1.30); GLOMERULAR FILTRATION RATE 17.9 (>42); MAGNESIUM LEVEL 2.4 MG/DL (1.8-2.4); TOTAL PROTEIN 5.8 G/DL (5.7-8.2)
[2023-11-13 08:18] LABS: HEMATOCRIT 23.4 % (42.0-52.0); HEMOGLOBIN 7.7 g/dl (13.5-17.5)
[2023-11-13] MEDS: BETAMETHASONE DIP 0.05% OINT 15GM TOP SCH (09:00)
[2023-11-13] MEDS: TORSEMIDE (DEMADEX) 50 MG PER 1/2 TAB PO SCH (09:00)
[2023-11-13] MEDS ORDERED: DAPAGLIFLOZIN PROPANEDIOL 10MG TABLET (FARXIGA) PO SCH (09:00)
[2023-11-13] MEDS: VITAMIN D 1,000 INTERNATIONAL UNITS TABLET PO SCH (11:06)
[2023-11-13] MEDS: MULTIVITAMINS/MINERALS THERAP 1 TAB PO SCH (11:07)
[2023-11-13] MEDS: OMEGA-3 1000MG CAPSULE PO SCH (11:07)
[2023-11-13] MEDS: CETIRIZINE (ZyrTEC) 10 MG TAB PO SCH (11:07)
[2023-11-13] MEDS: DIGOXIN 0.125 MG TAB PO SCH (11:09)
[2023-11-13] MEDS ORDERED: PILL CUTTER 1 EACH XX ONE (11:12)
[2023-11-13] MEDS: FERRIC CARBOXYMALTOSE INJ 750 MG, VIAL MATE ADAPTER 1 EACH in NS 250 ML IV ONE (13:43)
[2023-11-13] MEDS: MOM 30ML SUSPENSION UDC PO ONE (13:44)
[2023-11-13 16:52] LABS: HEMATOCRIT 25.3 % (42.0-52.0); HEMOGLOBIN 8.5 g/dl (13.5-17.5)
[2023-11-13] MEDS: POLYETHYLENE GLYCOL (MIRALAX) 238GM BOTTLE PO ONE (17:19)
[2023-11-14] VITALS (12 sets, daily range): BP systolic 90–127; BP diastolic 50–61; TEMP 96.8–98.7; O2SAT 96–99
[2023-11-14 06:10] LABS: BASO % 0.3 % (0.0-1.0); EOS # 0.3 10^3/uL (0.0-0.5); EOS % 3.9 % (0.0-3.0); HEMATOCRIT 24.8 % (42.0-52.0); HEMOGLOBIN 8.1 g/dl (13.5-17.5); LYMPH # 0.6 10^3/uL (1.5-5.0); LYMPH % 8.2 % (24.0-44.0); MEAN CORPUSCULAR HGB CONC 32.7 g/dl (32.0-36.5); MEAN CORPUSCULAR VOLUME 88.9 fl (80.0-96.0); MONO # 0.8 10^3/uL (0.0-0.8); MONO % 9.8 % (2.0-8.0); NEUTROPHILS % 77.3 % (36.0-66.0); PLATELET COUNT, AUTOMATED 160 10^3/uL (150-450); RED BLOOD COUNT 2.79 10^6/uL (4.30-6.10); WHITE BLOOD COUNT 7.7 10^3/uL (4.0-10.0)
[2023-11-14] MEDS: POLYETHYLENE GLYCOL (MIRALAX) 238GM BOTTLE PO ONE (06:22)
[2023-11-14 06:25] LABS: ALBUMIN 2.7 G/DL (3.2-5.2); BILIRUBIN,TOTAL 1.4 MG/DL (0.3-1.2); CALCIUM LEVEL 8.8 MG/DL (8.3-10.6); CREATININE FOR GFR 3.12 MG/DL (0.70-1.30); GLOMERULAR FILTRATION RATE 20.7 (>42); MAGNESIUM LEVEL 2.6 MG/DL (1.8-2.4); POTASSIUM SERUM 3.8 MMOL/L (3.5-5.1); TOTAL PROTEIN 5.8 G/DL (5.7-8.2)
[2023-11-14 06:38] LABS: INR 2.91; PROTHROMBIN TIME 29.3 SECONDS (12.5-14.5)
[2023-11-14 07:08] LABS: HAPTOGLOBIN 73 mg/dL (34-355); TRANSFERRIN 284 mg/dL (177-329)
[2023-11-14] MEDS: POTASSIUM CHLORIDE 10MEQ SR TABLET PO ONE (09:04)
[2023-11-14] MEDS: DARBEPOETIN 100MCG/0.5ML *NON-DIALYSIS* SYRINGE SC SCH (11:18)
[2023-11-14] MEDS ORDERED: propofoL 200 MG/20 ML VIAL As Ordered ONE (13:44)
[2023-11-14] MEDS ORDERED: LIDOCAINE 2% 100MG/5ML SDV (FOR ANES.) As Ordered ONE (13:44)
[2023-11-14] MEDS ORDERED: fentaNYL 100 MCG/2 ML INJECTION As Ordered ONE (14:31)
[2023-11-14 14:40] LABS: HEMATOCRIT 28.2 % (42.0-52.0); HEMOGLOBIN 9.2 g/dl (13.5-17.5)
[2023-11-14] MEDS ORDERED: PHENYLEPHRINE 10MG/ML 1ML VIAL As Ordered ONE (15:04)
[2023-11-14] MEDS ORDERED: GLUCAGON INJ 1MG VIAL As Ordered ONE (15:09)
[2023-11-14 17:12] LABS: INR 2.87
[2023-11-14] MEDS: WARFARIN SOD 4MG TAB PO SCH (17:21)
[2023-11-15] VITALS: BP 127/57; TEMP 96.9; O2SAT 97
[2023-11-15 04:04] VITALS: BP 102/62; TEMP 97.5; O2SAT 93
[2023-11-15 06:25] LABS: BASO % 0.3 % (0.0-1.0); EOS # 0.3 10^3/uL (0.0-0.5); EOS % 4.9 % (0.0-3.0); HEMATOCRIT 25.9 % (42.0-52.0); HEMOGLOBIN 8.5 g/dl (13.5-17.5); LYMPH # 0.7 10^3/uL (1.5-5.0); LYMPH % 9.3 % (24.0-44.0); MEAN CORPUSCULAR HEMOGLOBIN 29.1 pg (27.0-33.0); MEAN CORPUSCULAR HGB CONC 32.8 g/dl (32.0-36.5); MEAN CORPUSCULAR VOLUME 88.7 fl (80.0-96.0); MONO # 0.8 10^3/uL (0.0-0.8); MONO % 10.8 % (2.0-8.0); NEUTROPHILS # 5.2 10^3/uL (1.5-8.5); NEUTROPHILS % 74.6 % (36.0-66.0); PLATELET COUNT, AUTOMATED 147 10^3/uL (150-450); RED BLOOD COUNT 2.92 10^6/uL (4.30-6.10)
[2023-11-15 06:41] LABS: INR 3.1; PROTHROMBIN TIME 30.8 SECONDS (12.5-14.5)
[2023-11-15 06:58] LABS: ALBUMIN 2.6 G/DL (3.2-5.2); BILIRUBIN,TOTAL 1.3 MG/DL (0.3-1.2); CALCIUM LEVEL 8.9 MG/DL (8.3-10.6); CREATININE FOR GFR 2.9 MG/DL (0.70-1.30); GLOMERULAR FILTRATION RATE 22.6 (>42); MAGNESIUM LEVEL 2.5 MG/DL (1.8-2.4); POTASSIUM SERUM 3.7 MMOL/L (3.5-5.1); TOTAL PROTEIN 5.5 G/DL (5.7-8.2)
[2023-11-15 07:29] VITALS: BP 91/53; TEMP 97.6; O2SAT 95
[2023-11-15] MEDS: DIGOXIN 0.0625MG PER 1/2TABLET PO SCH (08:05)
[2023-11-15] MEDS: POTASSIUM CHLORIDE 10MEQ SR TABLET PO ONE (08:06)
[2023-11-15] MEDS ORDERED: ENTR1TAB PO (09:02)
[2023-11-15] MEDS ORDERED: METO25TA PO (09:02)
== END 2023-11-15 11:54 | disposition home or self-care (01) | DRG 812 ==
LOC: M ED 12:19 → M ED INP 12:20 → OBSVTOIN 12:20 → ENRESERV 19:34 → M PCU 20:00 → INTOOBSV 11-14 14:00 → OBSVTOIN 11-14 14:00
PROVIDERS: ADMIT Internal Medicine; ATTEND Internal Medicine
PROC: 30233N1 Transfusion of Nonautologous Red Blood Cells into Peripheral Vein, Percutaneous Approach (ICD-10-PCS; 2023-11-12)
PROC: 0W3P8ZZ Control Bleeding in Gastrointestinal Tract, Via Natural or Artificial Opening Endoscopic (ICD-10-PCS; 2023-11-14)
PROC: 0DJD8ZZ Inspection of Lower Intestinal Tract, Via Natural or Artificial Opening Endoscopic (ICD-10-PCS; 2023-11-14)
PROC: 0DJ08ZZ Inspection of Upper Intestinal Tract, Via Natural or Artificial Opening Endoscopic (ICD-10-PCS; principal; 2023-11-14 14:45)
DX: D50.9 Iron deficiency anemia, unspecified (principal); K76.6 Portal hypertension; N17.9 Acute kidney failure, unspecified; E87.1 Hypo-osmolality and hyponatremia; I12.0 Hypertensive chronic kidney disease with stage 5 chronic kidney disease or end stage renal disease; I42.0 Dilated cardiomyopathy; I48.0 Paroxysmal atrial fibrillation; K21.9 Gastro-esophageal reflux disease without esophagitis; K55.20 Angiodysplasia of colon without hemorrhage; E78.5 Hyperlipidemia, unspecified; N18.30 Chronic kidney disease, stage 3 unspecified; Z95.0 Presence of cardiac pacemaker; Z95.2 Presence of prosthetic heart valve; K64.8 Other hemorrhoids; Z88.8 Allergy status to other drugs, medicaments and biological substances; Z79.899 Other long term (current) drug therapy; G47.31 Primary central sleep apnea; Z79.01 Long term (current) use of anticoagulants; E03.9 Hypothyroidism, unspecified; M10.9 Gout, unspecified; Z98.49 Cataract extraction status, unspecified eye; Z87.891 Personal history of nicotine dependence; D63.1 Anemia in chronic kidney disease

== ENCOUNTER → 2023-11-22 | Outpatient (REF) | payer MEDICARE ==
[~2023-11-22] MED LIST changes: +AUGM0.05 TOP; +ENTR1TAB PO; +FARX1TAB3 PO; +JANT4TAB PO; +LEVOTAB10 PO; +METO25TA PO; +PANT40TA29 PO; +PROC20004 SC; +REFR1DRO8 OU; +THERTAB52 PO
[2023-11-22 17:49] LABS: PERCENT SATURATION 18.8 % (19.7-50.0)
== END ==
LOC: M LAB REF 16:58
PROVIDERS: ATTEND Internal Medicine Nephrology
DX: D50.9 Iron deficiency anemia, unspecified (principal)

== ENCOUNTER 2024-01-06 10:55 | Outpatient (CLI) | payer MEDICARE ==
[~2024-01-06] VITALS: Ht 182.9 cm; Wt 77.2 kg
[~2024-01-06 10:55] MED LIST changes: +ALBUTEROL SULFATE 2.5MG/0.5ML INH NEB SOLN INH PRN; +EPINEPHrine INJ 1 MG/ML 1ML AMP IM PRN; +diphenhydrAMINE 50MG/ML VIAL IV PRN; +methylPREDNISolone 125MG 2ML VIAL IV PRN
[2024-01-06 11:55] VITALS: BP 98/57; O2SAT 97
[2024-01-06] MEDS ORDERED: NS 1,000 ML IV SCH (12:00)
[2024-01-06] MEDS: FERRIC CARBOXYMALTOSE INJ 750 MG in NS 250 ML (>50kg) IV ONE (12:15)
== END 2024-01-06 13:45 ==
LOC: M INFU 10:55
PROVIDERS: ATTEND Internal Medicine Nephrology
DX: D50.9 Iron deficiency anemia, unspecified (principal); Z88.8 Allergy status to other drugs, medicaments and biological substances
CPT/HCPCS: 96365; J1439

== ENCOUNTER 2024-01-13 12:05 | Outpatient (CLI) | payer MEDICARE ==
[~2024-01-13] VITALS: Ht 182.9 cm; Wt 85.9 kg
[2024-01-13 12:00] VITALS: BP 89/55; O2SAT 100
[2024-01-13] MEDS: FERRIC CARBOXYMALTOSE INJ 750 MG in NS 250 ML (>50kg) IV ONE (12:04)
[~2024-01-13 12:05] MED LIST changes: +NS 1,000 ML IV SCH
== END 2024-01-13 13:00 | disposition home or self-care (01) ==
LOC: M INFU 12:05
PROVIDERS: ATTEND Internal Medicine Nephrology
DX: D50.9 Iron deficiency anemia, unspecified (principal); Z88.8 Allergy status to other drugs, medicaments and biological substances
CPT/HCPCS: 96365; J1439

== ENCOUNTER → 2024-01-16 | Outpatient (REF) | payer MEDICARE ==
[~2024-01-16] MED LIST changes: -ALBUTEROL SULFATE 2.5MG/0.5ML INH NEB SOLN INH PRN; -EPINEPHrine INJ 1 MG/ML 1ML AMP IM PRN; -NS 1,000 ML IV SCH; -diphenhydrAMINE 50MG/ML VIAL IV PRN; -methylPREDNISolone 125MG 2ML VIAL IV PRN
== END ==
LOC: M LAB REF 17:06
PROVIDERS: ATTEND Internal Medicine Nephrology
DX: I50.9 Heart failure, unspecified (principal); N18.30 Chronic kidney disease, stage 3 unspecified; D64.9 Anemia, unspecified

== ENCOUNTER 2024-01-17 12:16 | Outpatient (CLI) | payer MEDICARE ==
[2024-01-17 12:10] VITALS: BP 104/54; O2SAT 99
[2024-01-17 13:26] VITALS: BP 89/55; TEMP 96.6; O2SAT 100
[2024-01-17 14:29] VITALS: BP 102/58; TEMP 97.6; O2SAT 100
[2024-01-17 15:10] VITALS: BP 98/58; O2SAT 100
== END 2024-01-17 15:10 | disposition home or self-care (01) ==
LOC: M INFU 12:16
PROVIDERS: ATTEND Internal Medicine Nephrology
DX: D64.9 Anemia, unspecified (principal); I50.9 Heart failure, unspecified; N18.30 Chronic kidney disease, stage 3 unspecified; Z88.8 Allergy status to other drugs, medicaments and biological substances
CPT/HCPCS: 36430; P9016